=== PATIENT | female | born 1960 | race Caucasian/White ===

== ENCOUNTER 2021-03-21 08:17 | Outpatient (REF) | payer OTHER, SELFPAY ==
[2021-03-21 11:36] LABS: Hematocrit 41.9 % (37-47); Hemoglobin 13.8 g/dl (12.0-16.0); Mean Corpuscular HGB Conc 32.9 g/dl (31.0-35.0); Mean Corpuscular Hemoglobin 29.2 pg (27.0-33.0); Mean Corpuscular Volume 88.6 fL (80-98); Mean Platelet Volume 10.6 fL (9.4-12.3); Platelet Count 350 X10*3/uL (160-400); Red Blood Count 4.73 X10*6/uL (4.20-5.50); Red Cell Distribution Width 12.6 % (11.0-16.0); White Blood Count 8.4 X10*3/uL (4.8-10.8)
[2021-03-21 12:13] LABS: Alanine Aminotransferase 15 U/L (0-31); Albumin Level 4.2 g/dL (3.5-5.0); Alkaline Phosphatase 79 U/L (39-117); Anion Gap 12 (12-20); Aspartate Amino Transferase 14 U/L (5-31); Bilirubin Total 0.8 mg/dL (0.0-1.0); Blood Urea Nitrogen 14 mg/dL (9-16); Calcium 9.5 mg/dL (8.4-10.2); Carbon Dioxide 29 mmol/L (22-29); Chloride 102 mmol/L (96-108); Cholesterol 175 mg/dL; Estimated Glomerular Filt Rate > 60; Glucose Fasting 101 mg/dL (60-99); HDL Cholesterol 53 mg/dL; LDL Cholesterol Calculated 103 mg/dl; Potassium 4.6 mmol/L (3.3-5.1); Sodium 138 mmol/L (135-145); Triglycerides 95 mg/dL
[2021-03-24 08:03] LABS: ~HepC Num1 0.06 S/CO (0.00-0.79); ~Hepatitis C Antibody Nonreactive (Nonreactive)
== END 2021-03-21 08:18 | disposition home or self-care (01) ==
LOC: HO.MANLDS 08:17
PROVIDERS: PCP Internal Medicine; Visit Provider Internal Medicine
DX: I10 Essential (primary) hypertension (principal)
CPT/HCPCS: 36415; 80053; 80061; 85027; 86803

== ENCOUNTER 2022-04-07 09:19 | Outpatient (REF) | payer OTHER, SELFPAY ==
--- NOTE | ~2022-04-07 | XR_ITS ---
EXAMINATION: XR CHEST CLINICAL INFORMATION: Dyspnea. COMPARISON: None TECHNIQUE: 2 views of the chest were obtained. FINDINGS: Normal appearance of the cardiomediastinal silhouette. No focal airspace opacities, pleural effusions or pneumothorax. No acute osseous abnormalities. Surgical tacks are identified in the upper abdomen XR/XR chest 2V IMPRESSION: No acute cardiopulmonary findings.
== END 2022-04-07 09:20 | disposition home or self-care (01) ==
LOC: HO.XRAY 09:19
PROVIDERS: PCP Internal Medicine; Visit Provider Physician Assistant
DX: R06.00 Dyspnea, unspecified (principal)
CPT/HCPCS: 71046

== ENCOUNTER 2022-04-22 15:14 | Outpatient (REF) | payer OTHER, SELFPAY ==
--- NOTE | ~2022-04-22 | XR_ITS ---
EXAMINATION: XR CHEST CLINICAL INFORMATION: Pneumonia due to Covid. COMPARISON: 04/07/2022 TECHNIQUE: 2 views of the chest were obtained. FINDINGS: There is mild lingular opacity obscuring the left cardiac border. A small area of atelectasis or infiltrate would need to be considered here. Otherwise, the lung garcia are comparable to previous. Grossly clear. The cardiac silhouette is within normal limits. The hilar structures do not appear pathologically enlarged. There is no effusion. XR/XR chest 2V IMPRESSION: Mild opacity in the region of the lingula obscuring the left cardiac border could represent a small area of atelectasis or infiltrate. Otherwise, the lung garcia are grossly clear.
== END 2022-04-22 15:15 | disposition home or self-care (01) ==
LOC: HO.XRAY 15:14
PROVIDERS: PCP Internal Medicine; Visit Provider Physician Assistant
DX: Z20.822 Contact with and (suspected) exposure to COVID-19 (principal); J12.82 Pneumonia due to coronavirus disease 2019
CPT/HCPCS: 71046

== ENCOUNTER 2022-07-06 08:44 | Outpatient (REF) | payer OTHER, SELFPAY ==
[2022-07-06 10:21] LABS: MANUAL DIFF FLAG NO
[2022-07-06 10:24] LABS: Basophils Absolute Auto 0.1 X10*3/uL (0.0-0.2); Basophils Percent Auto 0.9 % (0-2); Eosinophils Absolute Auto 0.2 X10*3/uL (0.0-0.4); Eosinophils Percent Auto 1.6 % (0-4); Hematocrit 43.6 % (37.0-47.0); Hemoglobin 14.6 g/dl (12.0-16.0); Imm Gran Abs Auto 0.04 X10*3/uL (0.00-0.03); Imm Gran Pct Auto 0.4 % (0.0-0.4); Lymphocytes Absolute Auto 2.2 X10*3/uL (1.2-4.9); Lymphocytes Percent Auto 23.2 % (20-40); Mean Corpuscular HGB Conc 33.5 g/dl (31.0-35.0); Mean Corpuscular Hemoglobin 29.3 pg (27.0-33.0); Mean Corpuscular Volume 87.4 fL (80.0-98.0); Mean Platelet Volume 10.3 fL (9.4-12.3); Monocytes Absolute Auto 0.8 X10*3/uL (0.1-1.2); Monocytes Percent Auto 8.4 % (2-11); Neutrophils Absolute Auto 6.3 x10*3/uL (2.0-8.3); Neutrophils Percent Auto 65.5 % (45-73); Platelet Count 368 X10*3/uL (160-400); Red Blood Count 4.99 X10*6/uL (4.20-5.50); Red Cell Distribution Width 12.8 % (11.0-16.0); White Blood Count 9.6 X10*3/uL (4.8-10.8)
[2022-07-06 11:19] LABS: Alanine Aminotransferase 17 U/L (0-31); Albumin Level 4.3 g/dL (3.5-5.0); Alkaline Phosphatase 84 U/L (39-117); Anion Gap 13 (12-20); Aspartate Amino Transferase 16 U/L (5-31); Bilirubin Total 0.7 mg/dL (0.0-1.0); Blood Urea Nitrogen 10 mg/dL (9-16); Calcium 9.7 mg/dL (8.4-10.2); Carbon Dioxide 27 mmol/L (22-29); Chloride 101 mmol/L (96-108); Cholesterol 169 mg/dL; Estimated Glomerular Filt Rate > 60; Glucose Random 111 mg/dL (60-115); HDL Cholesterol 48 mg/dL; LDL Cholesterol Calculated 96 mg/dl; Potassium 4.9 mmol/L (3.3-5.1); Sodium 136 mmol/L (135-145); Total Protein 7.2 g/dL (6.5-8.0); Triglycerides 126 mg/dL
== END 2022-07-06 08:45 | disposition home or self-care (01) ==
LOC: HO.MANLDS 08:44
PROVIDERS: Visit Provider Internal Medicine
DX: I10 Essential (primary) hypertension (principal)
CPT/HCPCS: 36415; 80053; 80061; 85025

== ENCOUNTER 2023-07-02 12:57 | Outpatient (REF) | payer OTHER, SELFPAY ==
--- NOTE | ~2023-07-02 | XR_ITS ---
EXAMINATION: XR CHEST CLINICAL INFORMATION: Cough. COMPARISON: 04/22/2022 TECHNIQUE: 2 views of the chest were obtained. FINDINGS: No significant abnormality is noted involving the heart, lungs, mediastinum, bony thorax or soft tissues. Surgical clips project over the anterior upper abdomen on lateral view, unchanged. XR/XR chest 2V IMPRESSION: No acute finding.
== END 2023-07-02 12:58 | disposition home or self-care (01) ==
LOC: HO.XRAY 12:57
PROVIDERS: PCP Internal Medicine; Visit Provider Internal Medicine
DX: R05.2 Subacute cough (principal)
CPT/HCPCS: 71046

== ENCOUNTER 2023-09-27 19:01 | Emergency (ER) | payer OTHER, SELFPAY ==
--- NOTE | ~2023-09-27 | XR_ITS ---
EXAMINATION: XR CHEST CLINICAL INFORMATION: Shortness of breath COMPARISON: Previous chest x-ray most recent June TECHNIQUE: Frontal view of the chest was obtained. FINDINGS: No significant abnormality is noted involving the heart, lungs, mediastinum, bony thorax or soft tissues. XR/XR chest 1V IMPRESSION: Unremarkable examination.
[2023-09-27 20:16] VITALS: BP 168/116; PULSE 91; RESP 22; TEMP 36.7; O2SAT 92; BMI 33.5
[2023-09-27] MEDS: Albuterol Sulfate 2.5 MG, Albuterol/Iprat 2.5/0.5MG 3 ML 3 ML INHALE (20:31)
[2023-09-27] MEDS: methylPREDNISolone Sod Succ 125 MG/2 ML VIAL IVPUSH (20:31)
--- NOTE | 2023-09-27 20:32 | ED_ITS ---
HPI - Asthma General Chief Complaint: Asthma Stated Complaint: asthma Time Seen by Provider: 09/27/23 20:58 Source: patient Mode of arrival: ambulatory Limitations: no limitations History of Present Illness HPI Narrative: 63 yo female with PMH of asthma, allergies, hypothyroidism - no steroids in several months, no admission in 15 years here with c/o cough, sputum production, wheezing, runny nose and sore throat - loss of voice that was rapid in 2 days. No known sick contacts. UTD on vaccines. MD complaint: asthma attack , shortness of breath and wheezing Onset (ago): day(s) (2) Severity: moderate Context: recent URI Associated symptoms: productive cough Asthma History: childhood onset Treatments Prior to Arrival: inhaled bronchodilator Related Data Previous Rx's Medication Instructions Recorded doxycycline hyclate 100 mg capsule 100 mg PO BID 7 days #14 caps 09/27/23 prednisone 20 mg tablet 40 mg (2 x 20 mg) PO DAILY 5 days 09/27/23 #10 tabs Allergies Allergy/AdvReac Type Severity Reaction Status Date / Time NSAIDS (Non-Steroidal Allergy Severe Anaphylaxis Verified 09/27/23 20:15 Anti-Inflamma Review of Systems 2 Review of Systems: Constitutional : No Fever, No Chills ENT/Mouth : pos Hoarseness, pos sore throat, No Rhinorrhea Eyes: No Redness, No Discharge, No Vision Changes Cardiovascular : No Chest Pain, positive SOB, positive Dyspnea on Exertion, No Edema Respiratory : positive Cough, No Sputum, positive Wheezing, Gastrointestinal : No Nausea, No Vomiting, No Diarrhea, No abdominal Pain Genitourinary : No Dysuria, No Hematuria Musculoskeletal : No joint pain, No Myalgias Skin : No rash Neuro : No Weakness, No Numbness, No Headache Psych : No anxiety, depression Heme/Lymph: No Bruising, No Bleeding Endocrine : No Polyuria, No Polydipsia All other systems reviewed and are negative [facility] Past Medical History Attestation statement: The following information was validated with the patient. Source: old records reviewed Medical History Hypothyroidism Asthma Social History Social History (Updated 09/27/23 @ 21:37 by Makayla Esparza DO) Alcohol intake: current Alcohol intake frequency: holidays/special occasions only Patient Tobacco Use Status: Never used Tobacco Smoked in Last 30 Days: No Use of substances other than those prescribed or required for medical reasons: No Advance Directives: No Advance Directives Information Provided: No Physical Exam 2 Vital Signs: Vital Signs: Last Vital Signs Temp 98.4 F 09/27/23 21:28 Pulse 87 09/27/23 21:41 Resp 20 09/27/23 21:41 BP 138/65 09/27/23 21:28 Pulse Ox 92 09/27/23 21:28 O2 Del Method Room Air 09/27/23 21:28 BMI result Body Mass Index 33.5 Appearance: Alert. Oriented X3. No acute distress. Eyes: Pupils equal, round and reactive to light. ENT: Pharynx erythematous but no exudates or swelling - it is hoarse Neck: Normal inspection. Neck supple. CVS: Normal heart rate and rhythm. Pulses normal. Respiratory: No respiratory distress. Breath sounds decreased Abdomen: Soft and non-tender. Skin: Skin warm and dry. Normal skin color. Normal skin turgor. Extremities: No lower extremity edema. No calf ttp Neuro: Oriented X 3. No motor deficit. No sensory deficit. Course Course Course Narrative: This is an RME: Additional HPI, ROS, PE not included below will be deferred to primary provider. This is a [id number] presenting to the ER with a complaint of shortness of breath and chest tightness since . Pt states that she started to have a cold on , then was exposed to a cat which she is highly allergic to. Voice hoarse at triage, using nebulizers and inhablers without relief. Medications Administered Discontinued Medications Generic Name Dose Route Start Last Admin Trade Name Jamey PRN Reason Stop Dose Admin Albuterol/Ipratropium 3 ml 09/27/23 21:14 09/27/23 21:41 Albuterol/Iprat 2.5/0.5mg 3 Ml Ampul.Neb INHALE 09/27/23 21:15 3 ml ONCE ONE Administration Albuterol Sulfate 2.5 mg/ 0 mg 09/27/23 20:26 09/27/23 20:31 Albuterol/Ipratropium 3 ml INHALE 09/27/23 20:27 2 dose ONCE ONE Administration Ceftriaxone Sodium 1 gm/ 50 mls @ 100 mls/hr 09/27/23 21:14 09/27/23 22:38 Sodium Chloride IV 09/27/23 21:43 Infused ONCE ONE Infusion Methylprednisolone Sodium Succinate 125 mg 09/27/23 20:21 09/27/23 20:31 Methylprednisolone Sod Succ 125 Mg/2 Ml Vial IVPUSH 09/27/23 20:22 125 mg ONCE ONE Administration Medical Decision Making Medical Decision Making [facility] Narrative: 63 yo female with PMH of asthma, allergies, hypothyroidism here with c/o asthma exacerbation in setting of URI symptoms she will need basic labs, CXR, viral panel - CXR for pneumonia, strep swab has WBC count of 18 at this time lactic acid, cultures and empiric ceftriaxone given - she denies fevers/chills. No travel or sick contacts could be stress or steroid burst related. Differential Diagnosis Differential Diagnoses: The differential diagnosis associated with the presentation includes asthma, URI, pneumonia, bronchitis, pharyngitis Admission/Observation Consideration of admission/observation: Escalation of care including admission/observation considered walking O2 sat 94%, feels much better, wheezing resolved. no hypoxia, lactic negative, VS stable can trial oral antibiotics and steroids at home feels stable for DC Lab Data [facility] Lab Attestation statement: I reviewed the patient's lab results. 09/27/23 20:30 09/27/23 20:30 Labs: Lab Results 09/27/23 09/27/23 Range/Units 20:30 21:35 WBC 18.3 H (4.8-10.8) X10*3/uL RBC 5.16 (4.20-5.50) X10*6/uL Hgb 14.8 (12.0-16.0) g/dl Hct 43.7 (37.0-47.0) % MCV 84.7 (80.0-98.0) fL MCH 28.7 (27.0-33.0) pg MCHC 33.9 (31.0-35.0) g/dl RDW 13.5 (11.0-16.0) % Plt Count 335 (160-400) X10*3/uL MPV 9.7 (9.4-12.3) fL Immature Gran % (Auto) 1.8 H (0.0-0.4) % Neut % (Auto) 65.6 (45-73) % Lymph % (Auto) 20.5 (20-40) % Bertie % (Auto) 7.3 (2-11) % Eos % (Auto) 4.4 H (0-4) % Baso % (Auto) 0.4 (0-2) % Lymph # (Auto) 3.8 (1.2-4.9) X10*3/uL Bertie # (Auto) 1.3 H (0.1-1.2) X10*3/uL Eos # (Auto) 0.8 H (0.0-0.4) X10*3/uL Baso # (Auto) 0.1 (0.0-0.2) X10*3/uL Abs Immat Gran (auto) 0.33 H (0.00-0.03) X10*3/uL Absolute Neuts (auto) 12.0 H (2.0-8.3) x10*3/uL Absolute Nucleated RBC 0.000 (0.0-0.012) X10*3/uL Nucleated RBC % (auto) 0.0 (0.0-0.2) /100WBC Sodium 139 (135-145) mmol/L Potassium 4.5 (3.3-5.1) mmol/L Chloride 100 (96-108) mmol/L Carbon Dioxide 25 (22-29) mmol/L Anion Gap 19 (12-20) BUN 13 (9-16) mg/dL Creatinine 0.87 (0.5-1.4) mg/dL Estim Creat Clear Calc 72.8 Estimated GFR > 60 Random Glucose 269 H (60-115) mg/dL Lactic Acid 1.8 (0.5-2.0) mmol/L Calcium 9.6 (8.4-10.2) mg/dL Magnesium 2.3 (1.6-2.6) mg/dL Total Bilirubin 0.4 (0.0-1.0) mg/dL Direct Bilirubin 0.1 (0.0-0.5) mg/dL AST 15 (5-31) U/L ALT 32 H (0-31) U/L Alkaline Phosphatase 117 (39-117) U/L Total Protein 6.9 (6.5-8.0) g/dL Albumin 3.9 (3.5-5.0) g/dL Influenza Type A (PCR) NEGATIVE (Negative) Influenza Type B (PCR) NEGATIVE (Negative) RSV RNA Qual (PCR) NEGATIVE (Negative) SARS-CoV-2 RNA (RT-PCR) NEGATIVE (Negative) S. pyogenes GrpA [place] Negative (Negative) Independent Interpretation I performed an independent interpretation of an: Plain X-Ray (normal ) Radiology Impression Discussion of test interpretation with radiology: I have reviewed the radiologist's reading. External Record Review External record reviewed: Office record Prescription Management I considered prescription management with: Antibiotic and Other Critical Care Time Critical Care Time Critical Care Time: Yes Total Critical Care Time: 35 Attestation: repeat nebs ordered, O2 ambulation trial, repeat assessments I attest to this time spent taking care of the patient Discharge Plan Discharge Clinical Impression: Asthma with acute exacerbation, Laryngitis Patient Disposition: Home, Self-Care Instructions: Asthma (ED), Laryngitis (ED) Additional Instructions: return for worsening symptoms - chest pain, difficulty breathing, low oxygen saturations below 92%, inability to eat or drink or any other concerns. repeat WBC count in 3 days with your doctor. negative for FLU/COVID/RSV and strep in ED Prescriptions: New doxycycline hyclate 100 mg capsule 100 mg PO BID 7 Days Qty: 14 0RF prednisone 20 mg tablet 40 mg PO DAILY 5 Days Qty: 10 0RF Interventions: ED Discharge Assessment Last Done: 09/27/23 23:05 Discharge Date/Time: 09/27/23 23:05
[2023-09-27 20:34] VITALS: PULSE 77; RESP 18; O2SAT 92
--- NOTE | 2023-09-27 20:34 | PC.NURSE ---
this rn assumed care of pt. pt reports increasing shortness of breath beginning yesterday. pt has notable bilateral expiratory wheezing at this time. pt denies chest pain. pt 92-93 on room air. normal sinus on tele 74-76. respiratory at bedside initiating breathing treatment. iv established, labs obtained and sent.
[2023-09-27 20:35] VITALS: PULSE 84; RESP 20; O2SAT 93
[2023-09-27 20:35] LABS: Basophils Absolute Auto 0.1 X10*3/uL (0.0-0.2); Basophils Percent Auto 0.4 % (0-2); Eosinophils Absolute Auto 0.8 X10*3/uL (0.0-0.4); Eosinophils Percent Auto 4.4 % (0-4); Hematocrit 43.7 % (37.0-47.0); Hemoglobin 14.8 g/dl (12.0-16.0); Imm Gran Abs Auto 0.33 X10*3/uL (0.00-0.03); Imm Gran Pct Auto 1.8 % (0.0-0.4); Lymphocytes Absolute Auto 3.8 X10*3/uL (1.2-4.9); Lymphocytes Percent Auto 20.5 % (20-40); MANUAL DIFF FLAG NO; Mean Corpuscular HGB Conc 33.9 g/dl (31.0-35.0); Mean Corpuscular Hemoglobin 28.7 pg (27.0-33.0); Mean Corpuscular Volume 84.7 fL (80.0-98.0); Mean Platelet Volume 9.7 fL (9.4-12.3); Monocytes Absolute Auto 1.3 X10*3/uL (0.1-1.2); Monocytes Percent Auto 7.3 % (2-11); Neutrophils Percent Auto 65.6 % (45-73); Platelet Count 335 X10*3/uL (160-400); Red Blood Count 5.16 X10*6/uL (4.20-5.50); Red Cell Distribution Width 13.5 % (11.0-16.0); White Blood Count 18.3 X10*3/uL (4.8-10.8)
[2023-09-27 20:50] LABS: Alanine Aminotransferase 32 U/L (0-31); Albumin Level 3.9 g/dL (3.5-5.0); Alkaline Phosphatase 117 U/L (39-117); Anion Gap 19 (12-20); Aspartate Amino Transferase 15 U/L (5-31); Bilirubin Direct 0.1 mg/dL (0.0-0.5); Bilirubin Total 0.4 mg/dL (0.0-1.0); Blood Urea Nitrogen 13 mg/dL (9-16); Calcium 9.6 mg/dL (8.4-10.2); Carbon Dioxide 25 mmol/L (22-29); Chloride 100 mmol/L (96-108); Creatinine Clr Calc Pharmacy 72.8; Estimated Glomerular Filt Rate > 60; Glucose Random 269 mg/dL (60-115); Magnesium 2.3 mg/dL (1.6-2.6); Potassium 4.5 mmol/L (3.3-5.1); Sodium 139 mmol/L (135-145); Total Protein 6.9 g/dL (6.5-8.0)
[2023-09-27 21:12] LABS: Influenza A PCR NEGATIVE (Negative); Influenza B PCR NEGATIVE (Negative); Resp Syncy Virus RNA Qual PCR NEGATIVE (Negative); SARS COV2 PCR INHOUSE NEGATIVE (Negative)
[2023-09-27 21:28] VITALS: BP 138/65; PULSE 87; RESP 20; TEMP 36.9; O2SAT 92
[2023-09-27 21:41] VITALS: PULSE 87; RESP 20; O2SAT 93
[2023-09-27] MEDS: Albuterol/Iprat 2.5/0.5MG 3 ML AMPUL.NEB INHALE (21:41)
--- NOTE | 2023-09-27 21:44 | MHC.EDTECH ---
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
[2023-09-27 21:47] LABS: IDNOW Serial# 6674DD1D; Strep A Nucleic Acid Negative (Negative)
[2023-09-27] MEDS: cefTRIAXone sodium 1 GM in 0.9 % Sodium Chloride 50 ML IV (21:48)
[2023-09-27 21:52] LABS: Lactic Acid 1.8 mmol/L (0.5-2.0)
--- NOTE | 2023-09-27 22:30 | MHC.EDTECH ---
Patient ambulated Per Provider order ,o2 sat when standing was 92 % on room air ,when ambulating o2 sat increased to 94 % on room air ,Provider aware .
== END 2023-09-27 23:05 | disposition home or self-care (01) ==
PROVIDERS: Physician Assistant Medical; Emergency Provider Emergency Medicine
DX: J45.901 Unspecified asthma with (acute) exacerbation (principal); J04.0 Acute laryngitis; R05.9 Cough, unspecified; Z20.822 Contact with and (suspected) exposure to COVID-19; Z20.828 Contact with and (suspected) exposure to other viral communicable diseases; Z79.899 Other long term (current) drug therapy
CPT/HCPCS: 0241U; 71045; 80048; 80076; 83605; 83735; 85025; 87040; 87651; 94640; 96365; 96375; 99284; 99285; J0696; J2930

== ENCOUNTER 2024-10-07 07:15 | Outpatient (REF) | payer OTHER, SELFPAY ==
[2024-10-07 07:52] LABS: MANUAL DIFF FLAG NO
[2024-10-07 08:02] LABS: Basophils Absolute Auto 0.1 X10*3/uL (0.0-0.2); Basophils Percent Auto 0.9 % (0-2); Eosinophils Absolute Auto 0.3 X10*3/uL (0.0-0.4); Eosinophils Percent Auto 2.5 % (0-4); Hematocrit 46.1 % (37.0-47.0); Hemoglobin 15.6 g/dl (12.0-16.0); Imm Gran Abs Auto 0.09 X10*3/uL (0.00-0.03); Imm Gran Pct Auto 0.8 % (0.0-0.4); Lymphocytes Absolute Auto 2.2 X10*3/uL (1.2-4.9); Lymphocytes Percent Auto 19.8 % (20-40); Mean Corpuscular HGB Conc 33.8 g/dl (31.0-35.0); Mean Corpuscular Hemoglobin 28.9 pg (27.0-33.0); Mean Corpuscular Volume 85.4 fL (80.0-98.0); Mean Platelet Volume 11.2 fL (9.4-12.3); Monocytes Absolute Auto 0.8 X10*3/uL (0.1-1.2); Monocytes Percent Auto 7.2 % (2-11); Neutrophils Absolute Auto 7.8 x10*3/uL (2.0-8.3); Neutrophils Percent Auto 68.8 % (45-73); Platelet Count 224 X10*3/uL (160-400); Red Cell Distribution Width 13.2 % (11.0-16.0); White Blood Count 11.3 X10*3/uL (4.8-10.8)
[2024-10-07 08:33] LABS: Hemoglobin A1C 576.8038 umol/L; Total Hemoglobin (HGBA1C) 4145.1059 umol/L
[2024-10-07 08:35] LABS: Hemoglobin A1c % > 14.0 % (<6.0)
[2024-10-07 08:52] LABS: Alanine Aminotransferase 23 U/L (0-31); Alkaline Phosphatase 107 U/L (39-117); Anion Gap 17 (12-20); Aspartate Amino Transferase 15 U/L (5-31); Bilirubin Total 0.6 mg/dL (0.0-1.0); Blood Urea Nitrogen 13 mg/dL (9-16); Calcium 10.1 mg/dL (8.4-10.2); Carbon Dioxide 25 mmol/L (22-29); Chloride 99 mmol/L (96-108); Estimated Glomerular Filt Rate > 60; Potassium 4.9 mmol/L (3.3-5.1); Sodium 136 mmol/L (135-145); Total Protein 6.9 g/dL (6.5-8.0)
[2024-10-07 11:28] LABS: Glucose Random 353 mg/dL (60-115)
== END 2024-10-07 07:16 | disposition home or self-care (01) ==
LOC: HO.LAB 07:15
PROVIDERS: PCP Internal Medicine; Visit Provider Physician Assistant
DX: E11.65 Type 2 diabetes mellitus with hyperglycemia (principal)
CPT/HCPCS: 36415; 80053; 83036; 85025

== ENCOUNTER 2025-04-09 09:02 | Outpatient (REF) | payer OTHER, SELFPAY ==
--- OUTSIDE RECORDS SUMMARY | 2025-04-09 09:10 | XMS_ITS | Data Portability ---
Author Organization [facility] Home Service Address [address] [place] [address] Assessment Encounter Date Assessment Date Assessment LastModified by Organization Details LastModified Time 07/28/2024 07/28/2024 [id number] [place] [id number] (FLATBED STITCHER) [facility] MODERATE MUST MEET 2 OUT OF 3 ELEMENTS: PROBLEMS, DATA OR RISK ELEMENT 1: PROBLEMS ADDRESSED 1 OR MORE CHRONIC ILLNESS WITH EXACERBATION OR 2 OR MORE STABLE CHRONIC ILLNESSES OR 1 UNDIAGNOSED NEW PROBLEM OR 1 ACUTE ILLNESS W/SYMPTOMS OR 1 ACUTE COMPLICATED INJURY ELEMENT 2: DATA MUST MEET 1 OF 3 CATEGORIES CATEGORY 1: REVIEW OF PRIOR EXTERNAL NOTES, REVIEW OF RESULTS, ORDERING OF EACH TEST, ASSESSMENT REQUIRING INDEPENDENT HISTORIAN OR CATEGORY 2: INDEPENDENT INTERPRETATION OF TESTS BY ANOTHER PHYSICIAN OR SPECIALIST OR CATEGORY 3: DISCUSSION OF MGT OR TEST INTERPRETATION W/EXTERNAL PHYSICIAN OR SPECIALIST ELEMENT 3: RISK RISK OF COMPLICATIONS AND/OR MORBIDITY OR MORTALITY OF PATIENT MANAGEMENT PROVIDER MUST THOROUGHLY DOCUMENT EACH ELEMENT THAT IS COVERED Not available 07/28/2024 14:15:58 10/23/2024 10/23/2024 [id number] [place] [id number] (FLATBED STITCHER) [facility] MODERATE MUST MEET 2 OUT OF 3 ELEMENTS: PROBLEMS, DATA OR RISK ELEMENT 1: PROBLEMS ADDRESSED 1 OR MORE CHRONIC ILLNESS WITH EXACERBATION OR 2 OR MORE STABLE CHRONIC ILLNESSES OR 1 UNDIAGNOSED NEW PROBLEM OR 1 ACUTE ILLNESS W/SYMPTOMS OR 1 ACUTE COMPLICATED INJURY ELEMENT 2: DATA MUST MEET 1 OF 3 CATEGORIES CATEGORY 1: REVIEW OF PRIOR EXTERNAL NOTES, REVIEW OF RESULTS, ORDERING OF EACH TEST, ASSESSMENT REQUIRING INDEPENDENT HISTORIAN OR CATEGORY 2: INDEPENDENT INTERPRETATION OF TESTS BY ANOTHER PHYSICIAN OR SPECIALIST OR CATEGORY 3: DISCUSSION OF MGT OR TEST INTERPRETATION W/EXTERNAL PHYSICIAN OR SPECIALIST ELEMENT 3: RISK RISK OF COMPLICATIONS AND/OR MORBIDITY OR MORTALITY OF PATIENT MANAGEMENT PROVIDER MUST THOROUGHLY DOCUMENT EACH ELEMENT THAT IS COVERED Not available 10/23/2024 13:43:11 12/01/2024 12/01/2024 [id number] [place] [id number] (FLATBED STITCHER) [facility] MODERATE MUST MEET 2 OUT OF 3 ELEMENTS: PROBLEMS, DATA OR RISK ELEMENT 1: PROBLEMS ADDRESSED 1 OR MORE CHRONIC ILLNESS WITH EXACERBATION OR 2 OR MORE STABLE CHRONIC ILLNESSES OR 1 UNDIAGNOSED NEW PROBLEM OR 1 ACUTE ILLNESS W/SYMPTOMS OR 1 ACUTE COMPLICATED INJURY ELEMENT 2: DATA MUST MEET 1 OF 3 CATEGORIES CATEGORY 1: REVIEW OF PRIOR EXTERNAL NOTES, REVIEW OF RESULTS, ORDERING OF EACH TEST, ASSESSMENT REQUIRING INDEPENDENT HISTORIAN OR CATEGORY 2: INDEPENDENT INTERPRETATION OF TESTS BY ANOTHER PHYSICIAN OR SPECIALIST OR CATEGORY 3: DISCUSSION OF MGT OR TEST INTERPRETATION W/EXTERNAL PHYSICIAN OR SPECIALIST ELEMENT 3: RISK RISK OF COMPLICATIONS AND/OR MORBIDITY OR MORTALITY OF PATIENT MANAGEMENT PROVIDER MUST THOROUGHLY DOCUMENT EACH ELEMENT THAT IS COVERED Not available 12/01/2024 09:21:03 Plan of Treatment Reminders Order Date Submit Date Provider Last Modified By Organization Details Last Modified Time Details Appointments FOLLOW UP 15 2024 10:00A M DR NEGRETE Not available Not available Not available Lab CMP, serum or plasma 2023 024 [facility], [address] [place] [address], [id number], 10/09/2024 15:20:03 CBC w/ auto diff 2023 024 [facility], [address] [place] [address], [id number], 10/06/2024 12:07:00 hemoglobi n A1c, QN, blood 2023 024 [facility], [address] [place] [address], [id number], 10/06/2024 12:07:01 Referral None recorded. Procedures None recorded. Surgeries None recorded. Imaging None recorded. Medication Orders Mounjaro 5 mg/0.5 mL subcutane ous pen injector 2023 024 [facility]/Pharmacy #[id number], [address] [facility], [place], [address], 10/23/2024 13:45:05 erythromy dangelo 5 mg/gram (0.5 %) eye ointment 2023 [facility]/Pharmacy #[id number], [address] [place], [address], 10/06/2024 12:01:10 metformin ER 500 mg tablet,ex tended release 24 hr 2023 [id number] [address] [place], [address], 10/28/2024 15:25:28 prednison e 10 mg tablet 2023 [id number] [address] [place], [address], 10/06/2024 11:41:36 Patient TargetsNo targets recorded. Patient Instructions Encounter Date Encounter Id Patient Instructions Last Modified By Organization Details Last Modified Time 07/28/2024 [id number] allergies: care instructions Not available 07/28/2024 14:38:49 learning about asthma Not available 07/28/2024 14:38:49 gastroesophageal reflux disease (GERD): care instructions Not available 07/28/2024 14:38:49 high blood press ure: care instructions Not available 07/28/2024 14:38:49 learning about h igh blood pressure Not available 07/28/2024 14:38:49 12/01/2024 [id number] pulse oximetry* IVY Not available 12/01/2024 09:27:56 Reason for Referral None Reported. Results Created Date Observation Date Name Description Value Unit Range Abnormal Flag Note LastModifiedBy Organization Detail LastModifiedTime 12/01/1912/01/2024 pulse oxime try* Result 95% RA Not Available [facility] [address] [facility] [address], [place], [address], 12/01/2024 08:37:12 10/04/20 24 10/04/2024 MAMMO , scree moi, digit al, bilat eral No observ ation record ed. [email or web address] [facility] ([facility]) - Callback Orders Only [address] [facility], [place], [address], 10/06/2024 12:05:02 Result Notes None recorded. Problems Name Problem SNOMED Code Status Onset Date Resolution Date Notes Provider Name and Address Organization Details Recorded Time Asthma 014099070 Active 2017 Leigh chanel [facility] 8 12:04:46 Allergic rhinitis 99884259 Active 2017 Leigh chanel [facility] 8 12:04:51 Gastroes ophageal reflux disease 753805187 Active 2017 Leigh chanel [facility] 8 12:05:04 Exposure to Bordetel la pertussi s Active 2017 Leigh chanel [facility] 8 12:05:22 [facility] hyperten wilfred 84572576 Active 2017 Leigh chanel [facility] 8 12:05:27 Severe anxiety (panic) 38400285 Active 2017 Leigh chanel [facility] 8 12:05:36 Sepsis 35225046 Completed 201710/06/2024 Removal Reason: resolved JAMES BURGOS [address] [place], [address], [facility] 4 11:56:35 COVID-19 205707225 Active 2021 Kayden Negrete DO [address] [place], [address], [facility] 2 21:12:06 Dyspnea 303268354 Active 2021 JAMES BURGOS [address] [place], [address], [facility] 2 14:06:49 Pneumoni a caused by SARS-CoV -2 4210066223 17460842 Active 2021 JAMES BURGOS [address] [place] [address], [address], [facility] 2 13:36:34 Pneumoni a 020912566 Active 2021 JAMES BURGOS [address] [place] [address], [address], [facility] 2 10:53:26 Cough 37906529 Active 2021 Kayden Negrete, DO [address] [place] [address], [address], [facility] 2 16:57:12 Anxiety 81235759 Active 2021 Kayden Negrete DO [address] [place] [address], [address], [facility] 2 12:31:27 Asthmati c bronchit is 723801772 Active 2022 Kayden Negrete DO [address] [place] [address], [address], [facility] 3 15:57:34 Aphthous ulcer of mouth 545075297 Active 2023 Kayden Negrete DO [address] [place] [address], [address], [facility] 4 16:49:31 Type 2 diabetes mellitus 93097303 Active 2023 JAMES BURGOS [address] [place] [address], [address], [facility] 4 11:54:55 Blephari tis 14654233 Active 2023 JAMES BURGOS [address] [place] [address], [address], [facility] 4 12:00:06 Blephari tis 25620014 Active 2023 JAMES BURGOS [address] [place] [address], [address], [facility] 4 12:00:45 Problem Notes None recorded. Procedures Surgical History None recorded. Imaging Results Imaging Date Name Status LastModified by Organiz ation Details LastModified Time 10/04/2024 MAMMO, screening, digital, bilateral completed [email or web address] [facility] ([facility]) - Callback Orders Only [address] [place], [address], 10/06/2024 12:05:02 Procedure Notes None recorded. Medical Equipment None Reported. Allergies Allergen ID Allergen Name Allergen Category Reaction Reaction Severity Criticality Documentation Date Start Date Code Code System Note Provider Name and Address Organization Details Recorded Time 246 Non-stero idal anti-infl ammatory agent (product) medicatio n anaphylax is Not available [facility] 01/31/2018 44031 005 SNOMED Lazaro chanel [facility] 4 15:02:41 247 Astelin medicatio n Not available Not available Not available 01/31/2018 84146 3 RxNorm Leigh chanel [facility] 8 12:04:29 248 egg extract food,medi cation Not available Not available Not available 01/31/2018 41471 15 RxNorm Leigh chanel [facility] 8 12:04:33 249 Vaccine product containin g only Influenza virus antigen (medicina l product) medicatio n Not available Not available Not available 01/31/2018 13096 92298 105 SNOMED Leigh chanel [facility] 8 12:04:39 Medications Name Sig Start Date Stop Date Status Note LastModified by Organization Details LastModified Time Prescript ion - Renewal 10/19 completed [facility] pharmacy Not Available Not Available Not Available Prescript ion - Prior Authoriza tion Request active Not Available Not Available Not Available amoxicill in 500 mg capsule TAKE 1 CAPSULE BY MOUTH 3 TIMES A DAY FOR 8 DAYS 05/12 completed Not Available Not Available Not Available prednison e 10 mg tablet TAKE 2 TABLETS BY MOUTH FOR 7 DAYS THEN 1 TABLET DAILY FOR 7 DAYS 10/06 completed Not Available Not Available Not Available doxycycli ne hyclate 100 mg capsule TAKE 1 CAP ORALLY 2 TIMES A DAY FOR 7 DAYS 05/12 completed Not Available Not Available Not Available ipratropi um 0.5 mg-albute rol 3 mg (2.5 mg base)/3 mL nebulizat ion soln INHALE 1 VIAL (3ML) 4 TIMES A DAY BY NEBULIZA TION ROUTE NEEDED active Not Available Not Available No t Available lisinopri l 20 mg-hydroc hlorothia zide 12.5 mg tablet TAKE 1 TABLET BY MOUTH ONCE A DAY 08/16 completed Not Available Not Available Not Available azithromy dangelo 250 mg tablet TAKE 2 TABLETS BY MOUTH TODAY, THEN TAKE 1 TABLET DAILY FOR 4 DAYS DIRECTED 10/06 completed Not Available Not Available Not Available benzonata te 200 mg capsule TAKE 1 CAPSULE BY MOUTH THREE TIMES A DAY NEEDED FOR 10 DAYS 05/12 completed Not Available Not Available Not Available valacyclo vir 1 gram tablet TAKE 1 TABLET BY MOUTH EVERY 12 HOURS FOR 7 DAYS 10/06 completed Not Available Not Available Not Available diltiazem CD 240 mg capsule,e xtended release 24 hr TAKE 1 CAPSULE BY MOUTH EVERY DAY 06/30 completed Not Available Not Available Not Available prednison e 20 mg tablet TAKE 2 TABS ORALLY DAILY FOR 5 DAYS 05/12 completed Not Available Not Available Not Available propranol ol ER 60 mg capsule,2 4 hr,extend ed release Take 1 capsule every day by oral route for 30 days. 03/08 completed Not Available Not Available Not Available amlodipin e 5 mg tablet TAKE 1 TABLET BY MOUTH EVERY DAY 05/12 completed Not Available Not Available Not Available spironola ctone 25 mg tablet TAKE 1 TABLET BY MOUTH EVERY DAY active Not Available Not Available No t Available Nexium 20 mg capsule,d elayed release Take 1 capsule every day by oral route. active Not Available Not Available No t Available oxycodone -acetamin ophen 5 mg-325 mg tablet TAKE 1 TABLET BY MOUTH EVERY 6 HOURS NEEDED FOR PAIN 05/12 completed Not Available Not Available Not Available lorazepam 0.5 mg tablet TAKE 1 TABLET BY MOUTH THREE TIMES A DAY IF NEEDED FOR ANXIETY/ PANIC ATTACK active Not Available Not Available No t Available amlodipin e 10 mg tablet TAKE 1 TABLET BY MOUTH EVERY DAY FOR 30 DAYS 06/30 completed Not Available Not Available Not Available erythromy dangelo 5 mg/gram (0.5 %) eye ointment APPLY 1 CM RIBBON INTO THE LOWER CONJUNCT IVAL SAC(S) IN THE AFFECTED EYE(S) 3 TIMES PER DAY active Not Available Not Available No t Available losartan 25 mg tablet TAKE 1 TABLET BY MOUTH EVERY DAY active Not Available Not Available No t Available Advair Diskus 250 mcg-50 mcg/dose powder for inhalatio n 1 puff bid no substitu tion 2023 active Not Available Not Available Not Avai lable mont[facility] 10 mg tablet TAKE 1 TABLET BY MOUTH EVERYDAY AT BEDTIME 10/23 completed Not Available Not Available Not Available lisinopri l 10 mg-hydroc hlorothia zide 12.5 mg tablet TAKE 1 TABLET BY MOUTH EVERY DAY 03/01 completed Not Available Not Available Not Available levofloxa dangelo 500 mg tablet TAKE 1 TABLET BY MOUTH EVERY 24 HOURS FOR 10 DAYS 05/12 completed Not Available Not Available Not Available levofloxa dangelo 750 mg tablet Take 1 tablet every day by oral route for 7 days. 03/27 completed Not Available Not Available Not Available albuterol sulfate HFA 90 mcg/actua tion aerosol inhaler INHALE 2 PUFFS BY MOUTH EVERY 4 HOURS NEEDED 2024 active Not Available Not Available Not Avai lable metformin ER 500 mg tablet,ex tended release 24 hr TAKE 1 TABLET BY MOUTH TWICE A DAY active Not Available Not Available No t Available doxycycli ne hyclate 100 mg tablet TAKE 1 TABLET BY MOUTH TWICE A DAY FOR 7 DAYS 10/19 completed Not Available Not Available Not Available amoxicill in 875 mg-potass ium clavulana te 125 mg tablet 08/16 completed Not Available Not Available Not Available duloxetin e 20 mg capsule,d elayed release TAKE 1 CAPSULE BY MOUTH EVERY DAY active Not Available Not Available No t Available duloxetin e 60 mg capsule,d elayed release Take 1 tablet(s ) every day by oral route. 2024 active Not Available Not Available Not Avai lable Boostrix Tdap 2.5 Lf unit-8 mcg-5 Lf/0.5 mL intramusc ular syringe ADMINIST ER 0.5ML IN THE MUSCLE DIRECTED 11/15 completed Not Available Not Available Not Available Vitamin D3 active Not Available Not Available Not Available Zyrtec 10 mg capsule Take 1 capsule every day by oral route. active Not Available Not Available No t Available Prevnar 13 (PF) 0.5 mL intramusc ular syringe ADMINIST ER 0.5ML IN THE MUSCLE DIRECTED 11/15 completed Not Available Not Available Not Available duloxetin e 40 mg capsule,d elayed release TAKE 1 CAPSULE BY MOUTH EVERY DAY 05/12 completed Not Available Not Available Not Available Shingrix (PF) 50 mcg/0.5 mL intramusc ular suspensio n, kit ADMINIST ER 0.5ML IN THE MUSCLE DIRECTED 11/15 completed Not Available Not Available Not Available Fluzone Quad (PF) 60 mcg (15 mcg x 4)/0.5 mL IM syringe ADMINIST ER 0.5ML IN THE MUSCLE DIRECTED 11/15 completed Not Available Not Available Not Available Paxlovid 300 mg (150 mg x 2)-100 mg tablets in a dose pack TAKE 3 TABLETS BY MOUTH TWICE A DAY FOR 5 DAYS 09/08 completed Not Available Not Available Not Available Mounjaro 5 mg/0.5 mL subcutane ous pen injector Inject 5 mg every week by subcutan eous route for 90 days. 2024 active Not Available Not Available Not Avai lable Mounjaro 2.5 mg/0.5 mL subcutane ous pen injector INJECT 2.5 MG SUBCUTAN EOUSLY WEEKLY DIRECTED 10/23 completed Not Available Not Available Not Available Vitals Date Recorded Body height Body mass index (BMI) Body weight Heart rate Oxygen saturation Oxygen saturation in Arterial blood by Pulse oximetry Systolic blood pressure Diastolic blood pressure Provider Name and Address Organization Details Last Updated DateTime 4 163.83 cm 28.3 kg/m2 19337.3 6 g 89 /min 95 % 95 % 134 mm[Hg] 84 mm[Hg] [facility] 4 11:44:41 Social History Question Answer Notes LastModified by Organizat ion Details LastModified Time Tobacco Smoking Status Former Smoker Not Available [facility] 10/01/2020 03:36:24 What Was The Date Of Your Most Recent Tobacco Screening? 10/06/2024 [email or web address] Information not available 10/06/2024 Sex: Unknown Functional Status Question Answer Note LastModified by Organizat ion Details LastModified Time Do you use any illicit or recreational drugs? No Information not available 06/12/2024 Do you or have you ever used any other forms of tobacco or nicotine? No [email or web address] Information not available 09/29/2023 Mental Status None recorded. Family History Nothing Reported. Medical History No medical history recorded. Gynecological HistoryNo gynecological history recorded. Obstetrics History GPAL:G 0 P 0 0 0 0 Immunizations Vaccine Type Date Status Note Provider Nam e and Address Organization Details Recorded Time COVID-19, mRNA, LNP-S, PF, 30 mcg/0.3 mL dose 1 completed Kyara Gencarelle [facility] 10/19/2022 12:08:04 SARS-COV-2 (COVID-19) vaccine, UNSPECIFIED 5 completed Shelley Rooney [facility] 02/05/2025 09:10:20 influenza, unspecified formulation 5 completed Shelley Rooney [facility] 02/05/2025 09:10:30 Tdap 0 completed Kayden Negrete, DO [address] [place] [address], [place], [address], [facility] 11/15/2020 16:16:49 Influenza, split virus, quadrivalent, preservative 0 completed Kyara Gencarelle [facility] 10/19/2022 12:08:04 zoster, unspecified formulation 0 completed [facility] 10/19/2022 12:08:05 Pneumococcal conjugate PCV 13 0 completed Kyara Gencarelle [facility] 10/19/2022 12:08:05 COVID-19, mRNA, LNP-S, PF, 100 mcg/0.5mL dose or 50 mcg/0.25mL dose 1 completed Kyara chanel [facility] 10/19/2022 12:08:05 COVID-19, mRNA, LNP-S, PF, 100 mcg/0.5mL dose or 50 mcg/0.25mL dose 1 completed Kyara chanel [facility] 10/19/2022 12:08:05 Past Encounters Encounter ID Performer Location Encounter Start Date Encounter Closed Date Diagnosis/Indication Diagnosis SNOMED-CT Code Diagnosis ICD10 Code Diagnosis Note [id number] Kayden Negrete [facility] [address] [facility], [place] [address] 03/29/2018 13:49:27 03/29/2018 16:08:28 Severe anxiety (panic) 55792312 F41.0 Essential hypertension 03864317 I10 Allergic rhinitis 866938 04 J30.1 will cont with otc meds as this has been mostly controlled [id number] Kayden Negrete DO [facility] [address] [facility] [address] 10/05/2018 09:00:27 10/05/2018 11:33:11 Essential hypertension 44467959 I10 denies any issues or cardiac sx tolerates meds Gastroesop hageal reflux disease 693051224 K21.9 doing well overall but is still having symptoms if stop reflux Severe anx iety (panic) 36074986 F41.0 quiet doing ok with prn lorazepam Asthma 330144122 J45.90 9 overall is ok despite recent uri will cont to take singulair and have low threshold to treat if this uri gets into lungs [id number] Kayden Negrete [facility] [address] [facility] [address] 03/08/2019 15:48:35 03/08/2019 16:49:50 Asthma 602370921 J45.909 overall is ok despite recent uri will cont to take singulair and have low threshold to treat if this uri gets into lungs Essential hypertension 08408845 I10 denies any issues or cardiac sx tolerates meds Severe anx iety (panic) 07840281 F41.0 quiet doing ok with prn lorazepam Trigger fi nger of left hand 4267403872 6443976 M65.30 has worsening trigger finger of her left thumb much worse and now is getting stuck [id number] Kayden Negrete [facility] [address] [facility] [address] 08/16/2019 16:12:21 08/18/2019 10:51:44 Asthma 097521732 J45.909 overall is ok has been using zyrtec d and singulair have low threshold to treat if this uri gets into lungs Severe anx iety (panic) 67552489 F41.0 quiet doing ok with prn lorazepam Essential hypertension 19398762 I10 denies any issues or cardiac sx tolerates meds doing so well with 40 lb wgt loss we will lower the lisinopril to 10 mg [id number] Kayden Negrete [facility] [address] [facility] [address] 02/21/2020 11:17:53 02/21/2020 11:48:42 Essential hypertension 37527798 I10 denies any issues or cardiac sx tolerates meds doing so well with 40 lb wgt loss we will lower the lisinopril to 10 mg Asthma 915002500 J45.90 9 overall is ok has been using zyrtec d and singulair have low threshold to treat if this uri gets into lungs Allergic rhinitis 580486 04 J30.1 will cont with otc meds as this has been mostly controlled [id number] [facility] [address] [facility] [address] 07/17/2020 10:00:57 07/17/2020 11:03:18 Essential hypertension 31161330 I10 bp is doing good denies any issues or cardiac sx tolerates meds doing so well with 40 lb wgt loss we will lower the lisinopril to 10 mg Asthma 718945877 J45.90 9 ipratropiu m nebulizer is very helpful and doing great overall is ok has been using zyrtec d and singulair have low threshold to treat if this uri gets into lungs Right uppe r quadrant pain 595750716 R10.11 ongoing for the last several months described as a severe cramp worse with fatty food had cholecyste ctomy 3 yrs ago also had liver cyst removal at that time ? if this is adhesion?? [id number] Kayden Negrete DO [facility] [address] [facility],[place] [address] 07/26/2020 11:01:52 07/26/2020 11:27:07 Right upper quadrant abdominal mass 6033386799 6744053 R19.01 noted to have increasing pain to this area and I actually feel a lump to deep palpation which is assoc with the pat's discomfort when pressed Essential hypertension 08825540 I10 bp is doing good denies any issues or cardiac sx tolerates meds doing so well with 40 lb wgt loss we will lower the lisinopril to 10 mg Asthma 600009880 J45.90 9 ipratropiu m nebulizer is very helpful and doing great overall is ok has been using zyrtec d and singulair have low threshold to treat if this uri gets into lungs Gastroesop hageal reflux disease 399333924 K21.9 doing well overall but is still having symptoms if stop reflux [id number] Kayden Negrete DO [facility] [address] [facility] [address] 08/09/2020 12:11:50 08/09/2020 13:54:19 Asthma 594562681 J45.909 ipratropiu m nebulizer is very helpful and doing great overall is ok has been using zyrtec d and singulair have low threshold to treat if this uri gets into lungs Right uppe r quadrant pain 153138800 R10.11 seems the pain is more pronounced when certain movements are done and is certainly more frequent now Calcific c oronary arteriosclerosis 36908624 I25.[address] scan strong family history and starting exercise program [id number] Kayden Negrete [facility] [address] [facility],[place] [address] 11/15/2020 16:11:53 11/15/2020 16:42:33 Asthma 110816992 J45.909 has had no big issues and is feeling quite good ipratropiu m nebulizer is very helpful and doing great overall is ok has been using zyrtec d and singulair have low threshold to treat if this uri gets into lungs Essential hypertension 76499198 I10 bp is doing good denies any issues or cardiac sx tolerates meds doing so well Transient cerebral ischemia 003118472 G45.9 no further issues or episodes Allergic rhinitis 319870 04 J30.1 will cont with otc meds as this has been mostly controlled flonase is helpful [id number] Kayden [facility] [address] [facility] on [place] [address] 03/24/2021 15:47:13 03/24/2021 16:34:54 Asthma [id number] J45.909 has had no big issues and is feeling quite good ipratropiu m nebulizer is very helpful and doing great overall is ok has been using zyrtec d and singulair have low threshold to treat if this uri gets into lungs Essential hypertension 64027300 I10 bp is doing good denies any issues or cardiac sx tolerates meds doing so well Gastroesop hageal reflux disease 368650777 K21.9 doing well overall but is still having symptoms if stop reflux [id number] Kayden Negrete [facility] [address] [facility] [address] [place] 7 09/26/2021 15:44:49 09/26/2021 16:23:20 Asthma [id number] J45.909 teddy has needed her advair and using daily we will cont this before getting sick she has had no big issues and is feeling quite good ipratropiu m nebulizer is very helpful and doing great overall is ok has been using zyrtec d and singulair Essential hypertension 61296625 I10 bp is doing good denies any issues or cardiac sx tolerates meds doing so well Severe anx iety (panic) 75985785 F41.0 quiet doing ok with prn lorazepam Pneumonitis 963761503 J1 8.9 we wilkl need to treat as i believe she is entering a pneumonia situation [id number] Kayden Negrete [facility] [address] [facility] [address] [place] [address] 12/05/2021 09:33:50 12/05/2021 13:41:20 Asthma 587159493 J45.31 will start on pred and z abby Suspected COVID-19 31359 4004 Z20.822 will re-test at her convenien e [id number] Kayden Negrete [facility] [address] [facility] [address] 7 03/27/2022 15:23:07 03/30/2022 11:58:26 Asthma [id number] J45.31 ahalisa has needed her advair and using daily we will cont this before getting sick she has had no big issues and is feeling quite good ipratropiu m nebulizer is very helpful and doing great overall is ok has been using zyrtec d and singulair Essential hypertension 19110685 I10 bp is doing good denies any issues or cardiac sx tolerates meds doing so well Severe anx iety (panic) 10871641 F41.0 quiet doing ok with prn lorazepam [id number] Kayden Negrete [facility] [address] [facility] [address] [place] [address] 04/22/2022 10:23:22 04/22/2022 16:43:12 Asthma 844994777 J45.31 will need a longer course of prednisone in the meantime COVID-19 344984094 U07.1 three weeks out, negative at home rapid this week Pneumonia caused by SARS-CoV-2 4429851812 51606850 J12.82 will fu with CXR for check of her lungs to see if she has developed her pna [id number] Kayden Negrete [facility] [address] [facility] [address],[place] [address] 07/28/2022 08:46:14 07/29/2022 09:31:24 Essential hypertension 98117266 I10 bp is doing good denies any issues or cardiac sx tolerates meds doing so well Gastroesop hageal reflux disease 609896947 K21.9 not having symptoms doing well Asthma 308657647 J45.31 she has needed her advair and using daily we will cont this she still is struggling with her asthma since the covid infection PRIOR :before getting sick she has had no big issues and is feeling quite good ipratropiu m nebulizer is very helpful and doing great overall is ok has been using zyrtec d and singulair Transient cerebral ischemia 263666391 G45.9 no further issues or episodes Cough 29236483 R05.2 [id number] Kayden Negrete [facility] [address] [facility],[place] 7 10/19/2022 12:06:39 10/19/2022 13:50:40 Cough 29308923 R05.2 prob all asthma related or even some reactive airway from the post covid Asthma 292215729 J45.31 she has needed her advair and using daily we will cont this she still is struggling with her asthma since the covid infection PRIOR :before getting sick she has had no big issues and is feeling quite good ipratropiu m nebulizer is very helpful and doing great overall is ok has been using zyrtec d and singulair Essential hypertension 84713098 I10 bp is doing good denies any issues or cardiac sx tolerates meds doing so well Anxiety 92641053 F41.9 [id number] Kayden Negrete [facility] [address] [facility],[place] 7 03/01/2023 15:49:38 03/01/2023 16:39:18 Anxiety 07134073 F41.9 has worsened we will need to increase the dose to 40 and see if this helps it did help wiht the panic attacks Essential hypertension 85013117 I10 bp is uncontroll ed stop the lisinopril we [place] 60mg [id number] Kayden Negrete [facility] [address] [facility],[place] [address] 06/28/2023 15:25:34 06/28/2023 16:29:02 Asthma 295956750 J45.31 states the asthma has been pretty bad since the humidity and heat are bad as well as the smokd from licha relates that she is now having ongoing cough and postnasal drip using flonase advair albuterol PRIOR :before getting sick she has had no big issues and is feeling quite good ipratropiu m nebulizer is very helpful and doing great overall is ok has been using zyrtec d and singulair Gastroesop hageal reflux disease 334474512 K21.9 not having symptoms doing well Anxiety 38284223 F41.9 has worsened we will need to increase the dose to 40 and see if this helps it did help with the panic attacks Essential hypertension 00564220 I10 bp is uncontroll ed stop the lisinopril we will replace with propranolo l la 60mg Transient cerebral ischemia 319463808 G45.9 no further issues or episodes Family his tory of breast cancer 523575403 Z80.3 sister and mother with breast ca Cough 75567931 R05.2 prob all asthma related or even some reactive airway from the post covid [id number] Kayden Negrete DO [facility] [address] [facility],[place] [address] 09/29/2023 14:58:20 09/29/2023 16:38:36 Asthmatic bronchitis 457732676 J45.909 initiated by a viral infect will need to taper off pred and chng e to levazquin Essential hypertension 64529422 I10 bp is uncontroll ed stop the lisinopril we will replace with propranolo l la 60mg Asthma 787220769 J45.31 states the asthma has been pretty bad since the humidity and heat are bad as well as the smokd from [place] relates that she is now having ongoing cough and postnasal drip using flonase advair albuterol PRIOR :before getting sick she has had no big issues and is feeling quite good ipratropiu m nebulizer is very helpful and doing great overall is ok has been using zyrtec d and singulair [id number] Kayden Negrete DO [facility] [address] [facility] [address] [place] [address] 05/12/2024 14:52:49 05/12/2024 16:07:02 Renewal of prescription 501911018 Z76.0 Depression screening 171 512125 Z13.31 stable but stressed Asthma 624934594 J45.31 states the asthma has been pretty bad since the humidity and heat are bad as well as the smokd from [place] relates that she is now having ongoing cough and postnasal drip using flonase advair albuterol PRIOR :before getting sick she has had no big issues and is feeling quite good ipratropiu m nebulizer is very helpful and doing great overall is ok has been using zyrtec d and singulair Essential hypertension 27520113 I10 stop the losartan and will increase the dose of the amlodipine [id number] Kayden Negrete DO [facility] [address] [facility] [place] [address] 06/12/2024 14:58:56 06/13/2024 09:38:37 Gastroesophageal reflux disease 444081331 K21.9 not having symptoms doing well Essential hypertension 41500522 I10 will change [id number] to diltiazem 240mg Cough 87757224 R05.2 prob all asthma related or even some reactive airway from the post covid [id number] Kayden Negrete DO [facility] [address] [facility],[address] [place] [address] 06/30/2024 08:59:55 06/30/2024 14:53:45 Depression screening 834121689 Z13.31 stable but stressed Essential hypertension 48774464 I10 will stop the diltiazem we will try the spironolac tone given fluid retention and hopefullyw ill not cause fogginess Gastroesop hageal reflux disease 212177462 K21.9 not having symptoms doing well Asthma 031264500 J45.31 states the asthma has been pretty good since the humidity and heat are bad as well as the smokd from [place] relates that she is now having ongoing cough and postnasal drip using flonase advair albuterol PRIOR :before getting sick she has had no big issues and is feeling quite good ipratropiu m nebulizer is very helpful and doing great overall is ok has been using zyrtec d and singulair [id number] Kayden Negrete DO [facility] [address] [facility], [place] [address] 07/25/2024 08:49:22 08/24/2024 23:00:38 [id number] Kayden Negrete [facility] [address] [facility], [place] [address] 07/28/2024 08:37:13 07/28/2024 14:40:36 Essential hypertension 84443417 I10 will stop the diltiazem we will try the spironolac tone given fluid retention and hopefullyw ill not cause fogginess Gastroesop hageal reflux disease 658563500 K21.9 not having symptoms doing well Asthma 441581708 J45.31 states the asthma has been pretty good since the humidity and heat are bad as well as the smokd from [place] relates that she is now having ongoing cough and postnasal drip using flonase advair albuterol PRIOR :before getting sick she has had no big issues and is feeling quite good ipratropiu m nebulizer is very helpful and doing great overall is ok has been using zyrtec d and singulair Allergic rhinitis 810476 04 J30.1 doing poorly with the allergies will give slow pred [id number] Kayden Negrete [facility] [address] [place] [address], [place] [address] 10/06/2024 11:38:41 10/06/2024 13:36:29 Type 2 diabetes mellitus 92522604 E11.65 will set up with lab workneed A1c check to have on file would prefer her to be on one of the GLP-1 injections Blepharitis 37973111 H01 .004 will set up with topical solutionge t rid of mascarawar m compresses [id number] Kayden Negrete [facility] [address] [facility], [place] [address] 10/23/2024 08:39:14 10/23/2024 13:59:14 Type 2 diabetes mellitus 76422315 E11.65 fer increase the metformin to bid and increase the mounjaro to 5mghome readings are no longer in 300s and now in 200's must get eye exam [id number] DO [facility] [address] [facility] [address],[place] [address] 12/01/2024 09:09:59 12/01/2024 09:35:05 Asthma 561630724 J45.31 states the asthma has been pretty good since the humidity and heat are bad as well as the smokd from [place] relates that she is now having ongoing cough and postnasal drip using flonase advair albuterol PRIOR :before getting sick she has had no big issues and is feeling quite good ipratropiu m nebulizer is very helpful and doing great overall is ok has been using zyrtec d and singulair Essential hypertension 34554995 I10 will stop the diltiazem we will try the spironolac tone given fluid retention and hopefullyw ill not cause fogginess Type 2 claribel betes mellitus 65990714 E11.65 we increased the metformin to bid and increased the mounjaro to 5mg and sugars are downhome readings are no longer in 300s and now in 100's low must get eye exam Health Concerns Section Related Observation LastModified by Organization Detai ls LastModified Time None Recorded Concern Status LastModified by Organization Details LastModified Time None Recorded Advance Directives Directive None Recorded Payers Encounter Date Sequence Insurance Name Policy Number Policy Fry Covered Member ID Fry Member ID Guarantor Name 07/25/2024 1 [employer] (PP[employer] MARILOU Koch [id number] Sekou Koch 07/28/2024 1 [employer] MARILOU Koch [id number] Sekou Koch 10/06/2024 1 [employer] MARILOU Koch [id number] Sekou Koch 10/23/2024 1 [employer]PP[employer] MARILOU Koch [id number] Sekou Koch 12/01/2024 1 [employer] (PP[employer] MARILOU Koch [id number] Sekou Koch Notes Date Note Type Note Provider Name and Address Organization Details Recorded Time 4 text/htm l Care Management - HypertensionReported bypatient.Self Care:not under emotional stress Severity:symptoms are improving; does not interfere with daily activities Associated Symptoms:no dizziness; no lightheadedness; no chest pain; no shortness of breath; no palpitations; no edema; no calf muscle cramps; no blurred vision; no confusion; no headaches; no fatigueNotes:bp has been still up even with relaxedstarted taking magnesium and cramps stopped and lost 6 lbs feels much betterwarned her about the possibility of elevated Mg+ with spironolactone use patient is evaluated via tele/video assessment per patient consentduring current pandemic troubled with pollen and allergies but only in throat not wheezingusing zyrtec with fair results all her other side effects from other med is now gone Kayden Negrete DO [address] [place], [address], [facility] 07/28/2024 14:39:22 4 text/htm l c/o ?diabetes new the patient reports that she has had 16 pounds weight w/o tryingdry mouth, excess thirst, headaches, fatigue, and increased urinationthe patient reports hoarseness due to seasonal allergies the patient reports that she has had a series of infections starting with COVID for the last few months including viral infection of the tongue, sinus infections, severe agreed to A1cshe took her blood glucose with her son's meter, >300recommended starting metformin in the meantimeneed A1c on file for alt medications to provide insurance JAMES BURGOS [address] [place], [address], [facility] 10/06/2024 12:05:17 4 text/htm l patient is evaluated via tele/video assessment per patient consentduring current pandemic long discussion re recent dx of DM relates that a1c was 14 and was placed on metforminrelates has been losing wgt and has lost total 30 since last yeartolerates the metforminwill have her increase Kayden Negrete DO [address] [place], [address], [facility] 10/23/2024 13:53:38 5 text/htm l Care Management - DiabetesReported bypatient.Self Care:seeing eye doctor yearly for dilated eye exam; checking feet regularly; normal range of home blood sugars (in the low 100s); no side effects from medications Associated Symptoms:symptoms are usually well controlled; no fatigue; no dizziness; no excessive sweating; no headaches; no confusion; no increased thirst; no increased appetite; no increased urination; no blurred vision; no numbness of feet; no calluses on feetCare Management - HypertensionReported bypatient.Self Care:not under emotional stress Severity:symptoms are improving; does not interfere with daily activities Associated Symptoms:no dizziness; no lightheadedness; no chest pain; no shortness of breath; no palpitations; no edema; no calf muscle cramps; no blurred vision; no confusion; no headaches; no fatigue here for rechk and is doing well except for constipationrelates sugars are great and her avg for the last month is 113a1c is pending Kayden Negrete, DO [address] [facility], [place], [address], [facility] 12/01/2024 09:24:58 OBGyn Episode No OBEpisode recorded.
[2025-04-09 12:54] LABS: Alanine Aminotransferase 16 U/L (0-31); Albumin Level 4.2 g/dL (3.5-5.0); Alkaline Phosphatase 65 U/L (39-117); Anion Gap 13 (12-20); Aspartate Amino Transferase 23 U/L (5-31); Bilirubin Total 0.6 mg/dL (0.0-1.0); Blood Urea Nitrogen 12 mg/dL (9-16); Calcium 9.5 mg/dL (8.4-10.2); Carbon Dioxide 25 mmol/L (22-29); Chloride 103 mmol/L (96-108); Estimated Glomerular Filt Rate > 60; Glucose Random 90 mg/dL (60-115); Potassium 4.3 mmol/L (3.3-5.1); Sodium 137 mmol/L (135-145); Total Protein 6.9 g/dL (6.5-8.0)
[2025-04-09 13:59] LABS: Estimated Average Glucose 105 mg/dL; Hemoglobin A1C 134.8292 umol/L; Hemoglobin A1c % 5.3 % (<6.0); Total Hemoglobin (HGBA1C) 3868.5663 umol/L
== END 2025-04-09 09:03 | disposition home or self-care (01) ==
LOC: HO.10HDL 09:02
PROVIDERS: Visit Provider Physician Assistant
DX: E11.65 Type 2 diabetes mellitus with hyperglycemia (principal)
CPT/HCPCS: 36415; 80053; 83036

== ENCOUNTER 2025-08-29 18:21 | Outpatient (REF) | payer OTHER, SELFPAY ==
--- OUTSIDE RECORDS SUMMARY | 2025-08-29 18:24 | XMS_ITS | Encounter Summary ---
Author Organization [facility] Address [address] [facility] [place] [address] [place] [address] Phone Care Team Providers Care Highway Maintenance Supervisor Name Role Phone aKyden An DO Unavailable Florentino Johns MD Unavailable [phone] Mikayla Medina MD Unavailable [phone] Teodora Patterson MATE RELIEF Unavailable [phone] Krissy Hernández MATE RELIEF Unavailable [phone] Kayden An DO Primary Care Provider [phone] Encounter Details Date Type Department Care Team (Late st Contact Info) Description 07/26/2020 Procedure Pass [facility], Ct Scan - [address] [address] Social History Tobacco Use Types Packs/Day Years Used Date Smoking Tobacco: Never Assessed Comments Unknown Sex and Gender Information Value Date Recorded Sex Assigned at Female 01/18/2024 9:52 AM EST Legal Sex Female 9:50 PM EDT Gender Identity Female 01/18/2024 9:52 AM EST Sexual Orientation Straight 01/18/2024 9: 52 AM EST documented as of this encounter Plan of Treatment Not on file documented as of this encounter Visit Diagnoses Not on filedocumented in this encounter Care Teams Highway Maintenance Supervisor Relationship Specialty Start Date End Date Kayden An DO PCP - General 12/02/17 Kayden An DO [email or web address] LMR Provider 09/19/17 Floretnino Johns MD [address] [place] [address] Historical LMR Provider 09/19/17 12/06/21 Mikayla Medina MD [address] [address] Historical LMR Provider 09/19/17 Teodora Patterson NP [address] [place] [address] [email or web address] Historical LMR Provider 09/19/17 2 Krissy Hernández NP [address] [place] [address] Historical LMR Provider 09/19/17 2 documented as of this encounter Additional Source Comments The information contained in this document represents components of the legal health record. It is not the complete legal health record.[facility]
--- OUTSIDE RECORDS SUMMARY | 2025-08-29 18:24 | XMS_ITS | Encounter Summary ---
Author Organization [facility] Address [address] [place] [address] Phone Care Team Providers Care Secretary To Board Of Commissioners Name Role Phone Kayden An DO Unavailable Florentino Johns MD Unavailable [phone] Mikayla Medina MD Unavailable [phone] Teodora Patterson RADIOLOGICAL TECHNICIAN Unavailable [phone] [place] lo[place] RADIOLOGICAL TECHNICIAN Unavailable [phone] Kayden An DO Primary Care Provider [phone] Reason for Referral * MRI/CAT Scan - Closed Specialty Diagnoses / Procedures Referred By Char weldon Referred To Contact Radiology Diagnoses RUQ abdominal mass Procedures CT Abdomen Only (No Pelvis) Kayden An DO Phone: tel: fax: mailto:[email or web address] Referral ID Status Reason Start Date Expiration Date Visits Re quested Visits Authorized [id number] Closed 07/26/2020 07/26/2021 1 1 * MRI/CAT Scan - Closed Specialty Diagnoses / Procedures Referred By Char weldon Referred To Contact Radiology Diagnoses RUQ abdominal mass Procedures CT Chest Kayden An DO Phone: tel: fax: mailto: Referral ID Status Reason Start Date Expiration Date Visits Re quested Visits Authorized [id number] Closed 07/26/2020 07/26/2021 1 1 Encounter Details Date Type Department Care Team (Late st Contact Info) Description 07/26/2020 Transcribe Orders Virtual Department [address] [place] [address] Kayden An DO [address] [place] [address] [place] [address] RUQ abdominal mass (Primary Dx) Social History Tobacco Use Types Packs/Day Years [...] on file documented as of this encounter Results * CT ABDOMEN WITH CONTRAST (08/01/2020 2:30 PM EDT) Anatomical Region Laterality Modality Abdomen, Abdominal Vasculature C omputed Tomography 08/01/2020 3:05 PM EDT Narrative 08/01/2020 3:05 PM EDT Refer to the CT chest report. Procedure Note Myles Webb MD - 08/01/[address] chest report. us Kayden An DO IMG CT XSPECIALTY ORDERABLES Fin al Result * CT CHEST WITH CONTRAST (08/01/2020 2:30 PM EDT) Anatomical Region Laterality Modality Chest Computed Tomogra phy 08/01/2020 3:05 PM EDT Impressions 08/01/2020 3:25 PM EDT 1.No findings suspicious for malignancy. 2.Additional findings as above. CT ABDOMEN FINDINGS: Spleen: Normal. Liver: Stable small hypodensity in the left hepatic lobe adjacent to the falciform ligament measuring 9 mm most likely representing the cysts documented on prior abdominal ultrasounds. There is a 1.3 x 0.9 cm hypodensity in the left lateral segment with no definite prior ultrasound correlate and cannot be identified on the prior nonenhanced CT abdomen pelvis exam. Gallbladder/biliary tree: Cholecystectomy. No pathologic biliary dilatation. Pancreas: Normal. Adrenal glands: Normal. Vasculature: Stable moderate aortic and common iliac artery calcified plaque. No AAA or acute findings. Genitourinary: Chronic simple lower pole cysts with the largest measuring 7.6 cm incidental left extrarenal pelvis. Gastrointestinal tract: Incidental mild descending colon diverticulosis. Otherwise unremarkable. Peritoneum/retroperitoneum: No change in the anterior upper abdominal surgical clips. No enlarged lymph nodes, ascites or fluid collections. Musculoskeletal: No abdominal wall hernias. No soft tissue mass. Progressive moderate L2-3 disc disease. No compression fractures. No destructive or suspicious bone lesions. IMPRESSION: 1.No evidence of a right upper quadrant mass. 2.Apparently new 1.3 cm left hepatic lobe hypodense mass. This may represent an incidental cyst or hemangioma. Limited abdominal ultrasound is recommended. 3.Additional findings as above. N.B.: Calcification in the coronary arteries does not in itself have a high positive predictive value for near term cardiac events; however, in the appropriate clinical setting it may be an indication for further evaluation or cardiology consultation depending on the patients cardiac risk factors. Narrative 08/01/2020 3:25 PM EDT COMPARISON: Chest x-ray and CT abdomen/pelvis 02/26/2017. TECHNIQUE: After the administration of IV and oral contrast scanning initially obtained from lung apex to base. Scanning then obtained from dome of the liver through the iliac crest during portal venous phase. Sagittal and coronal reformats generated. Automated exposure control utilized. CT CHEST FINDINGS: Cardiovascular: Heart is normal in size. No pericardial effusion. No thoracic aneurysm or acute findings. Moderate proximal LAD calcified plaque. Main pulmonary artery outflow tract is normal in size. No findings suspicious for embolism. Mediastinum: Esophagus is normal. No enlarged mediastinal or hilar lymph nodes. Chest wall/thoracic inlet: No goiter or thyroid nodules identified. No enlarged supraclavicular or axillary lymph nodes. No suspicious breast findings. Musculoskeletal: Mild thoracic kyphosis with diffuse endplate spurring and mild mid thoracic spine disc space narrowing. No advanced bony degenerative changes, compression fractures or destructive or suspicious bone lesions. Lungs: No airway masses or bronchiectasis. No nodules, pulmonary masses, consolidation or pleural effusions. Procedure Note Myles Webb MD - 08/01/2020 COMPARISON: Chest x-ray and CT abdomen/pelvis 02/26/2017. TECHNIQUE: After the administration of IV and oral contrast scanninginitially obtained from lung apex to base. Scanning then obtained fromdome of the liver through the iliac crest during portal venous phase.Sagittal and coronal reformats generated. Automated exposure controlutilized. CT CHEST FINDINGS: Cardiovascular: Heart is normal in size. No pericardial effusion. Nothoracic aneurysm or acute findings. Moderate proximal LAD calcifiedplaque. Main pulmonary artery outflow tract is normal in size. No findingssuspicious for embolism. Mediastinum: Esophagus is normal. No enlarged mediastinal or hilar lymphnodes. Chest wall/thoracic inlet: No goiter or thyroid nodules identified. Noenlarged supraclavicular or axillary lymph nodes. No suspicious breastfindings. Musculoskeletal: Mild thoracic kyphosis with diffuse endplate spurring andmild mid thoracic spine disc space narrowing. No advanced bonydegenerative changes, compression fractures or destructive or suspiciousbone lesions. Lungs: No airway masses or bronchiectasis. No nodules, pulmonary masses,consolidation or pleural effusions. IMPRESSION: 1.No findings suspicious for malignancy. 2.Additional findings as above. CT ABDOMEN FINDINGS: Spleen: Normal. Liver: Stable small hypodensity in the left hepatic lobe adjacent to thefalciform ligament measuring 9 mm most likely representing the cystsdocumented on prior abdominal ultrasounds. There is a 1.3 x 0.9 cmhypodensity in the left lateral segment with no definite prior ultrasoundcorrelate and cannot be identified on the prior nonenhanced CT abdomenpelvis exam. Gallbladder/biliary tree: Cholecystectomy. No pathologic biliarydilatation. Pancreas: Normal. Adrenal glands: Normal. Vasculature: Stable moderate aortic and common iliac artery calcifiedplaque. No AAA or acute findings. Genitourinary: Chronic simple lower pole cysts with the largest measuring7.6 cm incidental left extrarenal pelvis. Gastrointestinal tract: Incidental mild descending colon diverticulosis.Otherwise unremarkable. Peritoneum/retroperitoneum: No change in the anterior upper abdominalsurgical clips. No enlarged lymph nodes, ascites or fluid collections. Musculoskeletal: No abdominal wall hernias. No soft tissue mass.Progressive moderate L2-3 disc disease. No compression fractures. Nodestructive or suspicious bone lesions. IMPRESSION: 1.No evidence of a right upper quadrant mass. 2.Apparently new 1.3 cm left hepatic lobe hypodense mass. This mayrepresent an incidental cyst or hemangioma. Limited abdominal ultrasoundis recommended. 3.Additional findings as above. N.B.: Calcification in the coronary arteries does not in itself have ahigh positive predictive value for near term cardiac events; however, inthe appropriate clinical setting it may be an indication for furtherevaluation or cardiology consultation depending on the patients cardiacrisk factors. Kayden An DO IMG CT CHEST Final Result documented in this encounter Visit Diagnoses Diagnosis RUQ abdominal mass- Primary Abdominal or pelvic swelling, mass, or lump, right upper quadrant RUQ abdominal mass Abdominal or pelvic swelling, mass, or lump, right upper quadrant documented in this encounter Care Teams Secretary To Board Of Commissioners Relationship Specialty Start Date End Date Kayden An DO PCP - General 12/02/17 Kayden An DO Historical LMR Provider 09/19/17 Florentino Johns MD [address] [place] [address] Historical LMR Provider 09/19/17 12/06/21 Mikayla Medina MD [address] [facility] [place] [address] [email or web address] Historical LMR Provider 09/19/17 Teodora Patterson NP [address] [place] [address] [email or web address] Historical LMR Provider 09/19/17 2 Krissy Hernández NP [address] [place] [id number] Historical LMR Provider 09/19/17 2 documented as of this encounter Additional Source Comments The information contained in this document represents components of the legal health record. It is not the complete legal health record.[facility]
--- OUTSIDE RECORDS SUMMARY | 2025-08-29 18:24 | XMS_ITS | Clinical Summary ---
Author Organization [facility] Address [address] [place] [id number] Phone Care Team Providers Care Tobacco Sprayer Name Role Phone Nataliya Kayden Solorzano DO Unavailable Mikayla Medina MD Unavailable [phone] Kayden An DO Primary Care Provider [phone] Allergies Active Allergy Reactions Criticality Noted Date Comments Azelastine 08/14/2020 Egg 08/14/2020 Influenza Virus Vaccines 08/14/2020 Nsaids (Non-Steroidal Anti-I nflammatory Drug) Anaphylaxis High 05/24/2017 Medications esomeprazole (NEXIUM) 40 MG capsule Take 1 capsule by mouth daily. Active fluticasone-allie meterol (ADVAIR DISKUS) 250-50 mcg/dose DISKUS inhalation Act carmenza montelukast (SINGULAIR) 10 mg tablet 1 tablet in the evening orally tid 1 Active fluticasone propionate (FLONASE) 50 mcg/actuation nasal spray 2 sprays by Each Nare route daily. 1 Active albuterol 90 mcg/actuation inhaler albuterol sulfate HFA 90 mcg/actuation aerosol inhaler TAKE 2 PUFFS BY MOUTH EVERY 4 HOURS NEEDED Active ipratropium-alb uteroL (DUONEB) 0.5-3 mg (2.5 mg base)/3 mL nebulizer solution 3 mL. Active lisinopril-hydr oCHLOROthiazide (PRINZIDE,ZESTO RETIC) 10-12.5 mg per tablet lisinopril 10 mg-hydrochlorot hiazide 12.5 mg tablet TAKE 1 TABLET BY MOUTH EVERY DAY Active LORazepam (ATIVAN) 0.5 MG tablet lorazepam 0.5 mg tablet take 1 tablet by mouth three times a day if needed FOR ANXIETY/PANIC ATTACK Active esomeprazole (NEXIUM) 20 MG capsule daily. Active Family History Medical History Relation Comments Breast cancer Mother Breast cancer Sister Relation Status Comments Mother Sister Social History Tobacco Use Types Packs/Day Years Used Date Smoking Tobacco: Former Smokeless Tobacco: Never Education Answer Date Recorded Are you interested in more education? Not on pb e 03/26/2023 Are you concerned about learning? Not on file 03/26/2023 No 03/26/2023 No 03/26/2023 Digital Access Answer Date Recorded No 04/26/2023 No 04/26/2023 Reliable internet access at home? Not on file 04/26/2023 Device with a working camera? Not on file Comments No Sex and Gender Information Value Date Recorded Sex Assigned at Female 01/18/2024 9:52 AM EST Legal Sex Female 9:50 PM EDT Gender Identity Female 01/18/2024 9:52 AM EST Sexual Orientation Straight 01/18/2024 9: 52 AM EST Last Filed Vital Signs Vital Sign Reading Time Taken Comments Blood Pressure 123/86 08/14/2020 4:14 PM EDT Pulse 78 08/14/2020 4:14 PM EDT Temperature 36.6 C (97.9 F) 08/14/2020 4:14 PM EDT Respiratory Rate - - Oxygen Saturation 98% 08/14/2020 4:14 PM EDT Inhaled Oxygen Concentration - - Weight 76.2 kg (168 lb) 08/14/2020 4:14 PM EDT Height 164.5 cm (5' 4.75 ) 08/14/2020 4:14 PM ED T Body Mass Index 28.17 08/14/2020 4:14 PM EDT Plan of Treatment Health Maintenance Due Date Last Done Comments Adult Td,Tdap Booster 1959 LIPID PANEL 1959 DEPRESSION SCREENING 1971 SMOKING Hx and SMOKELESS TOB ACCO SCREENING 1972 HEPATITIS C SCREENING 1977 COLOGUARD 2004 COLONOSCOPY 2004 COLORECTAL CANCER SCREENING 2004 FIT TEST 2004 FOBT 2004 SIGMOIDOSCOPY 2004 VIRTUAL COLONOSCOPY 2004 PNEUMOCOCCAL VACCINES (50+ y ears) (1 of 1 - PCV) 2009 ZOSTER VACCINES (1 of 2) 2009 RSV VACCINE (1 - Risk 60-74 years 1-dose series) 2019 CREATININE LEVEL 07/30/2021 07/30/2020 POTASSIUM LEVEL 07/30/2021 07/30/2020 OSTEOPOROSIS SCREENING INITI AL (ONE-TIME) 2024 COVID-19 VACCINE (2 - 2024-2 6 season) 2025 01/23/2021 MAMMOGRAM 10/04/2026 10/04/2024 HEPATITIS A VACCINES Aged Out No long er eligible based on patient's age to complete this topic HIB VACCINES Aged Out No longer eligi ble based on patient's age to complete this topic MENINGOCOCCAL VACCINES (ACWY) Aged Out No longer eligible based on patient's age to complete this topic MENINGOCOCCAL VACCINES (B) Aged Out N o longer eligible based on patient's age to complete this topic Medical Devices Not on file Procedures Procedure Name Priority Date/Time Associated Diagnosis Comments BI MAMMOGRAM SCREENING WITH TOMOSYNTHESIS WITH CAD (BILATERAL) Routine 10/04/2024 9:20 AM EST Breast screening COMPREHENSIVE METABOLIC PANEL Routine 07/30/2020 12:06 PM EDT Right upper quadrant abdominal mass from Last 3 Months or Most Recently Relevant to Health Maintenance Results * BI MAMMOGRAM SCREENING WITH TOMOSYNTHESIS WITH CAD (BILATERAL) (10/04/2024 9:20 AM EST) Anatomical Region Laterality Modality Breast Left, Breast Right, Breast Bilateral Bila teral Mammography 10/04/2024 2:31 PM EST Impressions 10/04/2024 7:10 PM EST No mammographic evidence of malignancy in either breast. Annual screening mammography is recommended. BI-RADS 2 BENIGN The patient will be notified of the results and recommendations. Narrative 10/04/2024 7:10 PM EST BI MAMMOGRAM SCREENING WITH TOMOSYNTHESIS WITH CAD (BILATERAL) Additional patient information: Screening. COMPARISON: Comparison is made with prior mammogram of 11/25/2012. Breast composition: There are scattered areas of fibroglandular density. FINDINGS: Oval, low-density, circumscribed mass in the 6 to 7:00 position of the right breast is unchanged. No abnormal masses, suspicious calcifications, or other significant findings are identified mammographically in either breast. Procedure Note Nidia Wilson MD - 10/04/2024 BI MAMMOGRAM SCREENING WITH TOMOSYNTHESIS WITH CAD (BILATERAL) Additional patient information: Screening. COMPARISON: Comparison is made with prior mammogram of 11/25/2012. Breast composition: There are scattered areas of fibroglandular density. FINDINGS: Oval, low-density, circumscribed mass in the 6 to 7:00 position of theright breast is unchanged. No abnormal masses, suspicious calcifications, or other significantfindings are identified mammographically in either breast. IMPRESSION: No mammographic evidence of malignancy in either breast. Annual screening mammography is recommended. BI-RADS 2 BENIGN The patient will be notified of the results and recommendations. us Kayden A Tomida DO IMG MG EXAMS Final Result * Comprehensive metabolic panel (07/30/2020 12:06 PM EDT) SODIUM 138 133 - 146 mmol/L [facility] POTASSIUM 4.4 3.3 - 5.1 mmol/L [facility] CHLORIDE 100 96 - 108 mmol/L [facility] CO2 28 21 - 35 mmol/L [facility] BUN 13 6 - 19 mg/dL [facility] CREATININE 0.70 0.5 - 1.5 mg/dL [facility] GLUCOSE 84 70 - 99 mg/dL [facility] ALBUMIN 4.6 3.9 - 4.8 g/dL [facility] TOTAL PROTEIN 7.4 6.5 - 8.0 g/dL [facility] CALCIUM 10.2 8.4 - 10.3 mg/dL [facility] ALKALINE PHOSPHATASE 83 39 - 117 U/L [facility] TOTAL BILIRUBIN 0.4 0.0 - 1.2 mg/dL [facility] AST 18 0 - 37 U/L [facility] ALT 14 0 - 40 U/L [facility] GLOBULIN 2.8 1 - 4.8 g/dL [facility] EGFR 94 >59 mL/min/1.7 3m2 [facility] Comment:Estimated glomerular filtration rate calculated using the CKD-EPI equation. ANION GAP 14 10 - 20 mmol/L [facility] Blood 07/30/2020 12:0 6 PM EDT 07/30/2020 12:12 PM EDT us Kayden An DO LAB BLOOD ORDERABLES Final Resul t [facility] [address] [place], [place] [id number] from Last 3 Months or Most Recently Relevant to Health Maintenance Insurance [employer] PPO [employer] P[employer] P[employer] PPO [employer] P[employer] P[employer] Care Teams Tobacco Sprayer Relationship Specialty Start Date End Date Kayden An DO PCP - General 12/02/17 Kayden An DO [email or web address] Historical LMR Provider 09/19/17 Mikayla Medina MD [address] [place] [id number] [email or web address] Historical LMR Provider 09/19/17 Additional Source Comments The information contained in this document represents components of the legal health record. It is not the complete legal health record.[facility]
--- OUTSIDE RECORDS SUMMARY | 2025-08-29 18:24 | XMS_ITS | Data Portability ---
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) [facility] [place] MODERATE MUST MEET 2 OUT OF 3 [...] COVERED Not available 10/23/2024 13:43:11 12/01/2024 12/01/2024 [id number] [place] [id number] (EMPLOYMENT CLERK) [facility] [place] MODERATE MUST MEET 2 OUT OF 3 [...] THAT IS COVERED Not available 12/01/2024 09:21:03 04/09/2025 04/09/2025 [id number] [place] [id number] (EMPLOYMENT CLERK) [facility] MODERATE MUST MEET 2 OUT OF [...] EACH ELEMENT THAT IS COVERED Not available 04/09/2025 10:18:39 07/18/2025 07/18/2025 [id number] [place] [id number] (EMPLOYMENT CLERK) [facility] MODERATE MUST MEET 2 OUT OF [...] EACH ELEMENT THAT IS COVERED Not available 07/18/2025 11:57:07 Plan of Treatment Reminders Order Date Submit Date Provider Last Modified By Organization Details Last Modified Time Details Appointments FOLLOW UP 15 2024 10:45A M DR NEGRETE Not available Not available Not available Lab hemoglobi n A1c, QN, blood 2024 025 [facility], [address] [place] [address], [place], [address], 07/18/2025 12:09:23 CMP, serum or plasma 2024 025 [facility], [address] [place] [address], [place], [address], 07/18/2025 12:09:23 CMP, serum or plasma 2023 024 [facility], [address] [place] [address], [address], 10/09/2024 15:20:03 CBC w/ auto diff 2023 [facility], [address] [place] [address], [id number], 10/06/2024 12:07:00 hemoglobi n A1c, QN, blood 2023 [facility], [address] [place] [address], [address], 10/06/2024 12:07:01 Referral None recorded. Procedures None recorded. Surgeries None recorded. Imaging None recorded. Medication Orders triamtere ne 37.5 mg-hydroc hlorothia zide 25 mg capsule [address] [id number], [address] [place], [address], 04/09/2025 10:17:09 Mounjaro 5 mg/0.5 mL subcutane ous pen injector [address] [id number], [address] [place], [address], 10/23/2024 13:45:05 erythromy dangelo 5 mg/gram (0.5 %) eye ointment [address] [id number], [address] [place], [address], 07/18/2025 11:32:20 metformin ER 500 mg tablet,ex tended release 24 hr 2023 024 [email or web address] #[id number], [address] [facility], [place], [address], 10/28/2024 15:25:28 Patient TargetsNo targets recorded. Patient Instructions Encounter Date Encounter Id Patient Instructions Last Modified By Organization Details Last Modified Time 12/01/2024 [id number] pulse oximetry* IVY Not available 12/01/2024 09:27:56 04/09/2025 [id number] pulse oximetry* Not available 04/09/2025 10:17:06 07/18/2025 [id number] pulse oximetry* Not available 07/18/2025 11:57:45 Reason for Referral None Reported. Results Created Date Observation Date Name Description Value Unit Range Abnormal Flag Note LastModifiedBy Organization Detail LastModifiedTime 12/01/1912/01/2024 pulse oxime try* Result 95% RA Not Available [facility] [address] [facility] [address], [place], [address], 12/01/2024 08:37:12 07/18/20 25 07/18/2025 pulse oxime try* Result 98 Not Available [facility] [address], [place], [address], 07/09/2025 14:17:48 10/04/20 24 10/04/2024 MAMMO , scree moi, digit al, bilat eral No observ ation record ed. [facility] - Callback Orders Only [address] [place], [address], 10/06/2024 12:05:02 Result Notes None recorded. Problems Name Problem SNOMED Code Status Onset Date Resolution Date Notes Provider Name and Address Organization Details Recorded Time Asthma 753489268 Active 2017 [facility] 8 12:04:46 Allergic rhinitis 05466949 Active 2017 [facility] 8 12:04:51 Gastroes ophageal reflux disease 334156273 Active 2017 [facility] 8 12:05:04 Exposure to Bordetel la pertkiai s Active 2017 [facility] 8 12:05:22 Essjacqui l hyperten wilfred 74893680 Active 2017 [facility] 8 12:05:27 Severe anxiety (panic) 11970330 Active 2017 [facility] 8 12:05:36 Sepsis 50399871 Completed 201710/06/2024 Removal Reason: resolved JAMES BURGOS [address] [place] [address], [address], [facility] 4 11:56:35 COVID-19 379091808 Active 2021 Kayden Negrete DO [address] [place] [address], [address], [facility] 2 21:12:06 Dyspnea 510611271 Active 2021 JAMES BURGOS [address] [place] [address], [address], [facility] 2 14:06:49 Pneumoni a caused by SARS-CoV -2 3814635122 51161627 Active 2021 JAMES BURGOS [address] [place] [address], [address], [facility] 2 13:36:34 Pneumoni a 772272393 Active 2021 JAMES BURGOS [address] [place] [address], [address], [facility] 2 10:53:26 Cough 24394382 Active 2021 Kayden Negrete DO [address] [place] [address], [address], [facility] 2 16:57:12 Anxiety 29121530 Active 2021 Kayden Negrete, [address], [address], [facility] 2 12:31:27 Asthmati c bronchit is 809705595 Active 2022 Kayden Negrete, [address], [address], [facility] 3 15:57:34 Aphthous ulcer of mouth 149616812 Active 2023 Kayden Negrete, [address], [address], [facility] 4 16:49:31 Type 2 diabetes mellitus 45374601 Active 2023 JAMES BURGOS [address] [place] [address], [address], [facility] 4 11:54:55 Blephari tis 82421250 Active 2023 JAMES BURGOS [address] [place] [address], [address], [facility] 4 12:00:06 Blephari tis 48122936 Active 2023 JAMES BURGOS [address] [place] [address], [address], [facility] 4 12:00:45 Problem Notes None recorded. Medical Equipment None Reported. Allergies Allergen ID Allergen Name Allergen Category Reaction Reaction Severity Criticality Documentation Date Start Date Code Code System Note Provider Name and Address Organization Details Recorded Time 246 Non-stero idal anti-infl ammatory agent (substanc e) medicatio n anaphylax is Not available high 01/31/2018 09328 5008 SNOMED [facility] 4 15:02:41 247 Astelin medicatio n Not available Not available Not available 01/31/2018 44969 3 RxNorm [facility] 8 12:04:29 248 egg extract food,medi cation Not available Not available Not available 01/31/2018 25137 15 RxNorm [facility] 8 12:04:33 249 Vaccine product containin g only influenza virus antigen (medicina l product) medicatio n Not available Not available Not available 01/31/2018 29957 89105 105 SNOMED Leigh chanel [place] [facility] 8 12:04:39 Medications Name Sig Start Date [...] completed Not Available Not Available Not Available triamtere ne 37.5 mg-hydroc hlorothia zide 25 mg capsule TAKE 1 CAPSULE BY MOUTH EVERY DAY active Not Available Not Available No t Available spironola ctone 25 mg tablet TAKE 1 TABLET BY MOUTH EVERY DAY 04/09 completed Not Available Not Available Not Available Nexium 20 mg capsule,d elayed release [...] THE AFFECTED EYE(S) 3 TIMES PER DAY 07/18 completed Not Available Not Available Not Available losartan 25 mg tablet TAKE 1 TABLET BY MOUTH EVERY DAY 05/12 completed Not Available Not Available Not Available Advair Diskus 250 mcg-50 mcg/dose powder for inhalatio n 1 puff po bid no substitu tion 2024 active Not Available Not Available Not [...] TAKE 1 CAPSULE BY MOUTH EVERY DAY 01/27 completed Not Available Not Available Not Available duloxetin e 60 mg capsule,d elayed release TAKE 1 CAPSULE BY MOUTH EVERY DAY active Not Available Not Available No t Available Boostrix Tdap 2.5 Lf unit-8 mcg-5 Lf/0.5 [...] in Arterial blood by Pulse oximetry Systolic And Diastolic Provider Name and Address Organization Details Last Updated DateTime 5 163.83 cm 28.2 kg/m2 31372.9 3 g 80 /min 98 % 98 % 130/80 mm[Hg] Carito Truong [facility] 5 10:02:48 Date Recorded Body height Body mass index (BMI) Body weight Oxygen saturation Oxygen saturation in Arterial blood by Pulse oximetry Heart rate Systolic And Diastolic Provider Name and Address Organization Details Last Updated DateTime 5 163.83 cm 27.9 kg/m2 53904.7 4 g 98 % 98 % 68 /min 122/74 mm[Hg] Deyanira Soriano [facility] 5 11:35:49 Date Recorded Body height Body mass index (BMI) Body weight Heart rate Oxygen saturation Oxygen saturation in Arterial blood by Pulse oximetry Systolic And Diastolic Provider Name and Address Organization Details Last Updated DateTime 4 163.83 cm 28.3 kg/m2 40232.3 6 g 89 /min 95 % 95 % 134/84 mm[Hg] Shelley Rooney [facility] 4 11:44:41 Social History Question Answer Notes LastModified by Organizat ion Details LastModified Time Tobacco Smoking Status Former Smoker Not Available [facility] 10/01/2020 03:36:24 What Was The Date Of Your Most Recent Tobacco Screening? 07/18/2025 [email or web address] Information not available 07/18/2025 Sex: Unknown Functional Status Question Answer Note LastModified by Organizat ion Details LastModified Time Do you use any illicit or recreational drugs? No [email or web address] Information not available 06/12/2024 Do you or have you ever used any other forms of tobacco or nicotine? No Information not available 09/29/2023 Mental Status None recorded. Family History Nothing Reported. Medical History No medical history recorded. Gynecological HistoryNo gynecological history recorded. Obstetrics History GPAL:G 0 P 0 0 0 0 Immunizations Vaccine Type Date Status Note Provider Nam e and Address Organization Details Recorded Time COVID-19, mRNA, LNP-S, PF, 30 mcg/0.3 mL dose 1 completed Kyara Gencarelle darío [facility] 10/19/2022 12:08:04 SARS-COV-2 (COVID-19) vaccine, UNSPECIFIED 5 completed Shelley chanel [facility] 02/05/2025 09:10:20 influenza, unspecified formulation 5 [facility] 02/05/2025 09:10:30 Tdap 0 completed Kayden Negrete, DO [address] [place] [address], [place], [address], [facility] 11/15/2020 16:16:49 Influenza, split virus, quadrivalent, preservative 0 completed Kyara Gencarelle darío [facility] 10/19/2022 12:08:04 zoster, unspecified formulation 0 completed Kyara Gencarelle null [facility] 10/19/2022 12:08:05 Pneumococcal conjugate PCV 13 0 completed [facility] 10/19/2022 12:08:05 COVID-19, mRNA, LNP-S, PF, 100 mcg/0.5mL dose or 50 mcg/0.25mL dose 1 completed Kyara Gencarelle null, [facility] 10/19/2022 12:08:05 COVID-19, mRNA, LNP-S, PF, 100 mcg/0.5mL dose or 50 mcg/0.25mL dose 1 completed Kyara chanel [facility] 10/19/2022 12:08:05 Past Encounters Encounter ID Performer Location Encounter Start Date Encounter Closed Date Diagnosis/Indication Diagnosis SNOMED-CT Code Diagnosis ICD10 Code Diagnosis IMO Codes Diagnosis Note [id number] Kayden Negrete [facility] [address] [facility] [address] 03/29/2018 13:49:27 03/29/2018 16:08:28 Severe anxiety (panic) 78266847 F41.0 Essential hypertension 27041709 I10 Allergic rhinitis 686543 04 J30.1 will cont with otc meds as this has been mostly controlled [id number] Kayden Negrete [facility] [address] [facility] [address] 10/05/2018 09:00:27 10/05/2018 11:33:11 Essential hypertension 71366401 I10 denies any issues or cardiac sx tolerates meds Gastroesop hageal reflux disease 854094728 K21.9 doing well overall but is still having symptoms if stop reflux Severe anx iety (panic) 35785264 F41.0 quiet doing ok with prn lorazepam Asthma 236285921 J45.90 9 overall is ok despite recent uri will cont to take singulair and have low threshold to treat if this uri gets into lungs [id number] Kayden Negrete [facility] [address] [facility] [address] [facility] [place] [address] 03/08/2019 15:48:35 03/08/2019 16:49:50 Asthma 881962599 J45.909 overall is ok despite recent uri will cont to take singulair and have low threshold to treat if this uri gets into lungs Essential hypertension 24817111 I10 denies any issues or cardiac sx tolerates meds Severe anx iety (panic) 47515670 F41.0 quiet doing ok with prn lorazepam Trigger fi nger of left hand 8968104677 7820681 M65.30 has worsening trigger finger of her left thumb much worse and now is getting stuck [id number] Kayden Negrete [facility] [address] [facility] [address] 08/16/2019 16:12:21 08/18/2019 10:51:44 Asthma 162852204 J45.909 overall is ok has been using zyrtec d and singulair have low threshold to treat if this uri gets into lungs Severe anx iety (panic) 77860043 F41.0 quiet doing ok with prn lorazepam Essential hypertension 32991389 I10 denies any issues or cardiac sx tolerates meds doing so well with 40 lb wgt loss we will lower the lisinopril to 10 mg [id number] Kayden Negrete [facility] [address] [facility] [address] 02/21/2020 11:17:53 02/21/2020 11:48:42 Essential hypertension 20985600 I10 denies any issues or cardiac sx tolerates meds doing so well with 40 lb wgt loss we will lower the lisinopril to 10 mg Asthma 139903750 J45.90 9 overall is ok has been using zyrtec d and singulair have low threshold to treat if this uri gets into lungs Allergic rhinitis 143806 04 J30.1 will cont with otc meds as this has been mostly controlled [id number] [facility] [address] [facility] [address] 07/17/2020 10:00:57 07/17/2020 11:03:18 Essential hypertension 00209342 I10 bp is doing good denies any issues or cardiac sx tolerates meds doing so well with 40 lb wgt loss we will lower the lisinopril to 10 mg Asthma 627686275 J45.90 9 ipratropiu m nebulizer is very helpful and doing great overall is ok has been using zyrtec d and singulair have low threshold to treat if this uri gets into lungs Right uppe r quadrant pain 422467331 R10.11 ongoing for the last several months described as a severe cramp worse with fatty food had cholecyste ctomy 3 yrs ago also had liver cyst removal at that time ? if this is adhesion?? [id number] Kayden Negrete DO [facility] [address] [facility] [address] 07/26/2020 11:01:52 07/26/2020 11:27:07 Right upper quadrant abdominal mass 2148266622 9877342 R19.01 noted to have increasing pain to this area and I actually feel a lump to deep palpation which is assoc with the pat's discomfort when pressed Essential hypertension 00246967 I10 bp is doing good denies any issues or cardiac sx tolerates meds doing so well with 40 lb wgt loss we will lower the lisinopril to 10 mg Asthma 432971847 J45.90 9 ipratropiu m nebulizer is very helpful and doing great overall is ok has been using zyrtec d and singulair have low threshold to treat if this uri gets into lungs Gastroesop hageal reflux disease 418716585 K21.9 doing well overall but is still having symptoms if stop reflux [id number] Kayden Negrete DO [facility] [address] [facility] [address] 08/09/2020 12:11:50 08/09/2020 13:54:19 Asthma 279430189 J45.909 ipratropiu m nebulizer is very helpful and doing great overall is ok has been using zyrtec d and singulair have low threshold to treat if this uri gets into lungs Right uppe r quadrant pain 834200132 R10.11 seems the pain is more pronounced when certain movements are done and is certainly more frequent now Calcific c oronary arteriosclerosis 93399832 I25.[address] scan strong family history and starting exercise program [id number] Kayden Negrete [facility] [address] [facility] [address] 11/15/2020 16:11:53 11/15/2020 16:42:33 Asthma 824090914 J45.909 has had no big issues and is feeling quite good ipratropiu m nebulizer is very helpful and doing great overall is ok has been using zyrtec d and singulair have low threshold to treat if this uri gets into lungs Essential hypertension 92358701 I10 bp is doing good denies any issues or cardiac sx tolerates meds doing so well Transient cerebral ischemia 760909535 G45.9 no further issues or episodes Allergic rhinitis 901147 04 J30.1 will cont with otc meds as this has been mostly controlled flonase is helpful [id number] Kayden Negrete [facility] [address] [facility] [address] [address] 03/24/2021 15:47:13 03/24/2021 16:34:54 Asthma 044804387 J45.909 has had no big issues and is feeling quite good ipratropiu m nebulizer is very helpful and doing great overall is ok has been using zyrtec d and singulair have low threshold to treat if this uri gets into lungs Essential hypertension 92819137 I10 bp is doing good denies any issues or cardiac sx tolerates meds doing so well Gastroesop hageal reflux disease 955869818 K21.9 doing well overall but is still having symptoms if stop reflux [id number] Kayden Negrete [facility] [address] [facility] [address] [address] 09/26/2021 15:44:49 09/26/2021 16:23:20 Asthma 337022928 J45.909 teddy has needed her advair and using daily we will cont this before getting sick she has had no big issues and is feeling quite good ipratropiu m nebulizer is very helpful and doing great overall is ok has been using zyrtec d and singulair Essential hypertension 05230523 I10 bp is doing good denies any issues or cardiac sx tolerates meds doing so well Severe anx iety (panic) 94474088 F41.0 quiet doing ok with prn lorazepam Pneumonitis 928017278 J1 8.9 we wilkl need to treat as i believe she is entering a pneumonia situation [id number] Kayden Negrete [facility] [address] [facility] [address] [address] 12/05/2021 09:33:50 12/05/2021 13:41:20 Asthma 613046678 J45.31 will start on pred and z abby Suspected COVID-19 36785 4004 Z20.822 [facility] [id number] Kayden Negrete [facility] [address] [facility] [address] [address] 03/27/2022 15:23:07 03/30/2022 11:58:26 Asthma 113040839 J45.31 teddy has needed her advair and using daily we will cont this before getting sick she has had no big issues and is feeling quite good ipratropiu m nebulizer is very helpful and doing great overall is ok has been using zyrtec d and singulair Essential hypertension 95383849 I10 bp is doing good denies any issues or cardiac sx tolerates meds doing so well Severe anx iety (panic) 16699009 F41.0 quiet doing ok with prn lorazepam [id number] Kayden Negrete [facility] [address] [facility] [address] [place] [address] 04/22/2022 10:23:22 04/22/2022 16:43:12 Asthma 070167687 J45.31 will need a longer course of prednisone in the meantime COVID-19 124134366 U07.1 three weeks out, negative at home rapid this week Pneumonia caused by SARS-CoV-2 2068169001 83063113 J12.82 will fu with CXR for check of her lungs to see if she has developed her pna [id number] Kayden Negrete [facility] [address] [facility] [address] [place] [address] 07/28/2022 08:46:14 07/29/2022 09:31:24 Essential hypertension 39274359 I10 bp is doing good denies any issues or cardiac sx tolerates meds doing so well Gastroesop hageal reflux disease 049092246 K21.9 not having symptoms doing well Asthma 45.31 she has needed her advair and using daily we will cont this she still is struggling with her asthma since the covid infection PRIOR :before getting sick she has had no big issues and is feeling quite good ipratropiu m nebulizer is very helpful and doing great overall is ok has been using zyrtec d and singulair Transient cerebral ischemia 984295545 G45.9 no further issues or episodes Cough 64762480 R05.2 [id number] Kayden Negrete [facility] [address] [facility], [place] 7 10/19/2022 12:06:39 10/19/2022 13:50:40 Cough 51043626 R05.2 prob all asthma related or even some reactive airway from the post covid Asthma 31 she has needed her advair and using daily we will cont this she still is struggling with her asthma since the covid infection PRIOR :before getting sick she has had no big issues and is feeling quite good ipratropiu m nebulizer is very helpful and doing great overall is ok has been using zyrtec d and singulair Essential hypertension 19187518 I10 bp is doing good denies any issues or cardiac sx tolerates meds doing so well Anxiety 12573765 F41.9 [id number] [facility] [address] [facility] [address] 03/01/2023 15:49:38 03/01/2023 16:39:18 Anxiety 40663202 F41.9 has worsened we will need to increase the dose to 40 and see if this helps it did help wiht the panic attacks Essential hypertension 58120649 I10 bp is uncontroll ed stop the lisinopril [place] 60mg [id number] Kayden Negrete [facility] [address] [facility] [address] 06/28/2023 15:25:34 06/28/2023 16:29:02 Asthma 461753758 J45.31 states the asthma has been pretty bad since the humidity and heat are bad as well as the smokd from [place] relates that she is now having ongoing cough and postnasal drip using flonase advair albuterol PRIOR :before getting sick she has had no big issues and is feeling quite good ipratropiu m nebulizer is very helpful and doing great overall is ok has been using zyrtec d and singulair Gastroesop hageal reflux disease 043072530 K21.9 not having symptoms doing well Anxiety 83635261 F41.9 has worsened we will need to increase the dose to 40 and see if this helps it did help with the panic attacks Essential hypertension 90685002 I10 bp is uncontroll ed stop the lisinopril we will replace with propranolo l [place] 60mg Transient cerebral ischemia 299224292 G45.9 no further issues or episodes Family his tory of breast cancer 746867909 Z80.3 sister and mother with breast ca Cough 04390786 R05.2 prob all asthma related or even some reactive airway from the post covid [id number] Kayden Negrete DO [facility] [address] [facility] [address] 09/29/2023 14:58:20 09/29/2023 16:38:36 Asthmatic bronchitis [id number] J45.909 initiated by a viral infect will need to taper off pred and chng e to levazquin Essential hypertension 37147861 I10 bp is uncontroll ed stop the lisinopril we will replace with propranolo l [place] 60mg Asthma 709549712 J45.31 states the asthma has been pretty [...] has been using zyrtec d and singulair [id number] Kayden Negrete DO [facility] [address] [facility] [address] 05/12/2024 14:52:49 05/12/2024 16:07:02 Renewal of prescription [id number] Z76.0 Depression screening 171 310710 Z13.31 stable but stressed Asthma 185230654 J45.31 states the asthma has been pretty [...] using zyrtec d and singulair Essential hypertension 83206287 I10 stop the losartan and will increase the dose of the amlodipine [id number] Kayden Negrete DO [facility] [address] [facility] [address] [place] [address] 06/12/2024 14:58:56 06/13/2024 09:38:37 Gastroesophageal reflux disease 764891769 K21.9 not having symptoms doing well Essential hypertension 87351596 I10 will change [id number] to diltiazem 240mg Cough 94026774 R05.2 prob all asthma related or even some reactive airway from the post covid [id number] Kayden Negrete DO [facility] [address] [facility] [address] [place] [address] 06/30/2024 08:59:55 06/30/2024 14:53:45 Depression screening 722966449 Z13.31 stable but stressed Essential hypertension 80721049 I10 will stop the diltiazem we will try the spironolac tone given fluid retention and hopefullyw ill not cause fogginess Gastroesop hageal reflux disease 163616558 K21.9 not having symptoms doing well Asthma 323907706 J45.31 states the asthma has been pretty [...] has been using zyrtec d and singulair [id number] Kayden Negrete DO [facility] [address] [facility] [address],[place] [address] 07/25/2024 08:49:22 08/24/2024 23:00:38 [id number] Kayden Negrete DO [facility] [address] [facility] [address] 07/28/2024 08:37:13 07/28/2024 14:40:36 Essential hypertension 26644129 I10 will stop the diltiazem we will try the spironolac tone given fluid retention and hopefullyw ill not cause fogginess Gastroesop hageal reflux disease 674002008 K21.9 not having symptoms doing well Asthma 144480430 J45.31 states the asthma has been pretty [...] using zyrtec d and singulair Allergic rhinitis 763026 04 J30.1 doing poorly with the allergies will give slow pred [id number] Kayden Negrete DO [facility] [address] [facility] [address] 10/06/2024 11:38:41 10/06/2024 13:36:29 Type 2 diabetes mellitus 68192996 E11.65 will set up with lab workneed A1c check to have on file would prefer her to be on one of the GLP-1 injections Blepharitis 11704043 H01 .004 will set up with topical solutionge t rid of mascarawar m compresses [id number] Kayden Negrete DO [facility] [address] [facility] [address] [facility] [place] [address] 10/23/2024 08:39:14 10/23/2024 13:59:14 Type 2 diabetes mellitus 97821142 E11.65 fer increase the metformin to bid and increase the mounjaro to 5mghome readings are no longer in 300s and now in 200's must get eye exam [id number] Kayden Negrete DO [facility] [address] [facility],[place] [address] 12/01/2024 09:09:59 12/01/2024 09:35:05 Asthma 744424173 J45.31 states the asthma has been pretty good since the humidity and heat are bad as well as the smokd from [place] relates that she is now having ongoing cough and postnasal drip using flonase advair albuterol PRIOR :before getting sick she has had no big issues and is feeling quite good ipratropiu m nebulizer is very helpful and doing great overall is ok has been using zyrtec d and singulair Essential hypertension 82535679 I10 will stop the diltiazem we will try the spironolac tone given fluid retention and hopefullyw ill not cause fogginess Type 2 claribel betes mellitus 78542391 E11.65 we increased the metformin to bid and increased the mounjaro to 5mg and sugars are downhome readings are no longer in 300s and now in 100's low must get eye exam [id number] DO [facility] [address] [facility] [address] 04/09/2025 09:56:56 04/09/2025 14:04:53 Asthma 333190507 J45.31 states the asthma has been pretty good since the humidity and heat are bad as well as the smokd from [place] relates that she is now having ongoing cough and postnasal drip using flonase advair albuterol PRIOR :before getting sick she has had no big issues and is feeling quite good ipratropiu m nebulizer is very helpful and doing great overall is ok has been using zyrtec d and singulair Type 2 claribel betes mellitus 55045640 E11.65 a1c is pending home bps stable tolerates the mounjarowe increased the metformin to bid and increased the mounjaro to 5mg and sugars are downhome readings are no longer in 300s and now in 100's low must get eye exam Essential hypertension 06082739 I10 the spironolac tone given fluid retention working good but having signif hair loss and sweatsbps are excellent but will have to change to dyazide Depression screening 171 837049 Z13.31 stable but stressed [id number] DO Sam[facility] Lewis Internal [facility] [address] [facility] [address],[place] [address] 07/18/2025 11:07:48 07/18/2025 12:08:40 Depression screening 801911644 Z13.31 stable but stressed Essential hypertension 37402163 I10 the spironolac tone given fluid retention working good but having signif hair loss and sweatsbps are excellent but will have to change to dyazide Type 2 claribel betes mellitus 99725207 E11.65 a1c is pending home bps stable tolerates the mounjarowe increased the metformin to bid and increased the mounjaro to 5mg and sugars are downhome readings are no longer in 300s and now in 100's lowhas gained more wgtmust get eye exam Asthma 689243987 J45.31 states the asthma has been pretty [...] has been using zyrtec d and singulair Health Concerns Section Related Observation LastModified by Organization Detai ls LastModified Time None Recorded Concern Status LastModified by Organization Details LastModified Time None Recorded Advance Directives Directive None Recorded Payers Insurance Date Sequence Insurance Name Policy Number Policy Fry Covered Member ID Fry Member ID Guarantor Name 07/15/2025 1 [employer] [facility] [id number] Sekou Koch [id number] Sekou Koch Notes Date Note Type Note Provider Name and Address Organization Details Recorded Time 4 text/htm l ROS as noted in the HPI c/o ?diabetes new the patient reports that [...] medications to provide insurance JAMES BURGOS [address] [place], [address], [facility] 10/06/2024 12:05:17 4 text/htm l ROS as noted in the HPI patient is evaluated via tele/video assessment per patient consentduring current pandemic long discussion re recent dx of DM relates that a1c was 14 and was placed on metforminrelates has been losing wgt and has lost total 30 since last yeartolerates the metforminwill have her increase Kayden Negrete DO [address] [place], [address], [facility] 10/23/2024 13:53:38 5 text/htm l Care Management - DiabetesReported by PatientHPIFor self care, patient reportsseeing eye doctor yearly for dilated eye exam,checking feet regularly,normal range of home blood sugars (in the low 100s), andno side effects from medications. For associated symptoms, patient reportssymptoms are usually well controlled,no fatigue,no dizziness,no excessive sweating,no headaches,no confusion,no increased thirst,no increased appetite,no increased urination,no blurred vision,no numbness of feet, andno calluses on feet. Care Management - HypertensionReported by PatientHPIFor self care, patient reportsnot under emotional stress. For severity, patient reportssymptoms are improvinganddoes not interfere with daily activities. For associated symptoms, patient reportsno dizziness,no lightheadedness,no chest pain,no shortness of breath,no palpitations,no edema,no calf muscle cramps,no blurred vision,no confusion,no headaches, andno fatigue.ROS as noted in the HPI here for rechk and is doing well except for constipationrelates sugars are great and her avg for the last month is 113a1c is pending Kayden Negrete DO [address] [place], [address], [facility] 12/01/2024 09:24:58 5 text/htm l Care Management - HypertensionReported by PatientHPIFor self care, patient reportsnot under emotional stress. For severity, patient reportssymptoms are improvinganddoes not interfere with daily activities. For associated symptoms, patient reportsno dizziness,no lightheadedness,no chest pain,no shortness of breath,no palpitations,no edema,no calf muscle cramps,no blurred vision,no confusion,no headaches, andno fatigue. Care Management - DiabetesReported by [facility]or self care, patient reportsseeing eye doctor yearly for dilated eye exam,checking feet regularly,normal range of home blood sugars (in the low 100s), andno side effects from medications. For associated symptoms, patient reportssymptoms are usually well controlled,no fatigue,no dizziness,no excessive sweating,no headaches,no confusion,no increased thirst,no increased appetite,no increased urination,no blurred vision,no numbness of feet, andno calluses on feet. Care Management - AsthmaReported by [facility] severity, patient reportsimproving,does not interfere with daily activities,does not disturb sleep, anddoes not cause nighttime awakening. For associated symptoms, patient reportsno fever,no fatigue,no irritability,no cough,normal appetite, andno change in productivity.ROS as noted in the HPI here for rech and just back from a [place] cruisedid great and feels good Kayden Negrete, DO [address] [place] [address], [address], [facility] 04/09/2025 10:33:35 5 text/htm l Care Management - DiabetesReported by PatientBRIGH[facility]ITALor self care, patient reportsseeing eye doctor yearly for dilated eye exam,checking feet regularly,normal range of home blood sugars (in the low 100s), andno side effects from medications. For associated symptoms, patient reportssymptoms are usually well controlled,no fatigue,no dizziness,no excessive sweating,no headaches,no confusion,no increased thirst,no increased appetite,no increased urination,no blurred vision,no numbness of feet, andno calluses on feet. Care Management - HypertensionReported by [facility] self care, patient reportsnot under emotional stress. For severity, patient reportssymptoms are improvinganddoes not interfere with daily activities. For associated symptoms, patient reportsno dizziness,no lightheadedness,no chest pain,no shortness of breath,no palpitations,no edema,no calf muscle cramps,no blurred vision,no confusion,no headaches, andno fatigue. Care Management - AsthmaReported by PatientHPIFor severity, patient reportsimproving,does not interfere with daily activities,does not disturb sleep, anddoes not cause nighttime awakening. For associated symptoms, patient reportsno fever,no fatigue,no irritability,no cough,normal appetite, andno change in productivity.ROS as noted in the HPI here for marty nd is doing ok except for the allergies Kayden Negrete, DO [address] [facility], [place], [address], [facility] 07/18/2025 12:00:11 OBGyn Episode No OBEpisode recorded.
--- OUTSIDE RECORDS SUMMARY | 2025-08-29 18:24 | XMS_ITS | Encounter Summary ---
Author Organization [facility] Address [address] [facility] [address] [place] [address] Phone Care Team Providers Care Supervisor Insulation Name Role Phone Kayden An DO Unavailable Florentino Johns MD Unavailable Mikayla Medina MD Unavailable Teodora Patterson PLANT MAINTENANCE WORKER Unavailable [place]Krissy lozano PLANT MAINTENANCE WORKER Unavailable Kayden An DO Primary Care Provider Encounter Details Date Type Department Care Team (Late st Contact Info) Description 07/17/2020 Transcribe Orders Virtual Department [address] [place] [address] Kayden An DO [address] [place] [address] RUQ pain (Primary Dx) Social History Tobacco Use Types [...] documented as of this encounter Results * US Abdomen Complete (07/22/2020 9:20 AM EDT) Anatomical Region Laterality Modality Abdomen Ultrasound 07/22/2020 9:24 AM EDT Impressions 07/22/2020 9:28 AM EDT 1.No acute findings. 2.Chronic liver and renal cysts. Narrative 07/22/2020 9:28 AM EDT COMPARISON: Abdominal ultrasound 12/14/[address] abdomen pelvis 02/26/2017. ABDOMEN ULTRASOUND FINDINGS: Liver: Chronic subcentimeter simple left pelvic lobe cyst. Gallbladder/Biliary Tree: Cholecystectomy The common bile duct measures 5 mm which is within normal limits. Pancreas: Imaged pancreas is normal. Pancreatic tail is obscured by bowel gas. Kidneys: No hydronephrosis. Chronic simple left lower renal pole simple cysts (largest ~6 cm). Spleen: Normal. Proximal abdominal aorta/IVC: Distal abdominal aorta is obscured by bowel gas. Otherwise unremarkable. Procedure Note Myles Webb MD - 07/22/2020 COMPARISON: Abdominal ultrasound 12/14/[address] abdomen pelvis02/26/2017. ABDOMEN ULTRASOUND FINDINGS: Liver: Chronic subcentimeter simple left pelvic lobe cyst. Gallbladder/Biliary Tree: Cholecystectomy The common bile duct measures5 mm which is within normal limits. Pancreas: Imaged pancreas is normal. Pancreatic tail is obscured bybowel gas. Kidneys: No hydronephrosis. Chronic simple left lower renal pole simplecysts (largest ~6 cm). Spleen: Normal. Proximal abdominal aorta/IVC: Distal abdominal aorta is obscured by bowelgas. Otherwise unremarkable. IMPRESSION: 1.No acute findings. 2.Chronic liver and renal cysts. us Kayden An DO IMG US ABDOMEN Final Result documented in this encounter Visit Diagnoses Diagnosis RUQ pain- Primary Abdominal pain, right upper quadrant RUQ pain Abdominal pain, right upper quadrant documented in this encounter Care Teams Supervisor Insulation Relationship Specialty Start Date End Date Kayden An DO [email or web address] PCP - General 12/02/17 Kayden An DO Historical LMR Provider 09/19/17 Florentino Johns MD [address] [place] [address] Historical LMR Provider 09/19/17 12/06/21 Mikayla Medina MD [address] [address] Historical LMR Provider 09/19/17 Teodora Patterson NP [address] [place] [id number] [email or web address] Historical LMR Provider 09/19/17 2 Krissy Hernández NP [address] [place] [address] Historical LMR Provider 09/19/17 2 documented as of this encounter Additional Source Comments The information contained in this document represents components of the legal health record. It is not the complete legal health record.[facility]
--- OUTSIDE RECORDS SUMMARY | 2025-08-29 18:24 | XMS_ITS | Encounter Summary ---
Author Organization [facility] Address [address] [facility] [address] [place] [address] Phone Care Team Providers Care Deposit Clerk Name Role Phone Kayden An DO Unavailable Florentino Johns MD Unavailable [phone] Mikayla Medina MD Unavailable [phone] Teodora Patterson INSPECTOR METAL CAN Unavailable [phone] Krissy Hernández INSPECTOR METAL CAN Unavailable [phone] Kayden An DO Primary Care Provider [phone] Encounter Details Date Type Department Care Team (Late st Contact Info) Description 07/26/2020 Procedure Pass [facility], Ct Scan - [address] [address] Social History Tobacco Use Types Packs/Day Years [...] on filedocumented in this encounter Care Teams Deposit Clerk Relationship Specialty Start Date End Date Kayden An DO PCP - General 12/02/17 Kayden An DO [email or web address] Historical LMR Provider 09/19/17 Florentino Johns MD [address] [place] [address] Historical LMR Provider 09/19/17 12/06/21 Mikayla Medina MD [address] [address] Historical LMR Provider 09/19/17 Teodora Patterson NP [address] [place] [address] [email or web address] Historical LMR Provider 09/19/17 2 Krissy Hernández NP [address] [place] [address] Historical LMR Provider 09/19/17 2 documented as of this encounter Additional Source Comments The information contained in this document represents components of the legal health record. It is not the complete legal health record.[facility]
--- OUTSIDE RECORDS SUMMARY | 2025-08-29 18:24 | XMS_ITS | Encounter Summary ---
Author Organization [facility] Address [address] [facility] [address] [place] [address] Phone Care Team Providers Care Business Support Coordinator Name Role Phone Kayden An DO Unavailable Mikayla Medina MD Unavailable [phone] Kayden An DO Primary Care Provider [phone] Encounter Details Date Type Department Care Team (Late st Contact Info) Description 06/29/2023 Procedure Pass [facility], [facility] [address] [place] [address] Social History Tobacco Use Types Packs/Day Years [...] on filedocumented in this encounter Care Teams Business Support Coordinator Relationship Specialty Start Date End Date Kayden An DO PCP - General 12/02/17 TomiKayden funk DO Historical LMR Provider 09/19/17 Mikayla Medina MD [address] [place] [address] Historical LMR Provider 09/19/17 documented as of this encounter Additional Source Comments The information contained in this document represents components of the legal health record. It is not the complete legal health record.[facility]
[2025-08-29 19:40] LABS: Alanine Aminotransferase 19 U/L (0-31); Albumin Level 4.6 g/dL (3.5-5.0); Alkaline Phosphatase 82 U/L (39-117); Anion Gap 13 (12-20); Aspartate Amino Transferase 19 U/L (5-31); Blood Urea Nitrogen 10 mg/dL (9-16); Calcium 9.6 mg/dL (8.4-10.2); Carbon Dioxide 27 mmol/L (22-29); Chloride 100 mmol/L (96-108); Estimated Glomerular Filt Rate > 60; Potassium 4.4 mmol/L (3.3-5.1); Sodium 136 mmol/L (135-145); Total Protein 7.2 g/dL (6.5-8.0)
== END 2025-08-29 18:22 | disposition home or self-care (01) ==
LOC: HO.LNP 18:21
PROVIDERS: Visit Provider Internal Medicine
DX: E11.65 Type 2 diabetes mellitus with hyperglycemia (principal)
CPT/HCPCS: 80053; 83036